=== PATIENT | male | born 1945 | race Caucasian/White ===

== ENCOUNTER 2017-11-08 16:01 | Outpatient (CLI) | payer MEDICARE ==
--- NOTE | 2017-11-08 18:16 | RAD ---
THREE VIEWS LEFT FOOT: Comparison: None. History: Left foot pain and swelling for three years. FINDINGS: Three views of the left foot shows no evidence of acute fracture or dislocation. Distal soft tissue s welling is seen. There appear to be multiple hammertoe deformities. There are degenerative changes in the midfoot. IMPRESSION: 1. Soft tissue swelling with underlying acute osseous abnormality. 2. Degenerative changes of the toes and midfoot. POS: [facility]
--- NOTE | 2017-11-08 18:22 | RAD ---
THREE VIEWS OF THE RIGHT FOOT: 11/08/17 INDICATION: Right foot pain and swelling for three years. COMPARISON: None. FINDINGS: There is chondrocalcinosis involving the great toe MTP joint. There is moderate to severe tarsometata rsal joint osteoarthrosis. No acute fracture or subluxation is evident. No abnormal malalignment is s een at the TMT joint. There is pes planus deformity of the foot. There is soft tissue swelling of th e right forefoot and midfoot. 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 IMPRESSION: 1. No definite acute osseous abnormality. 2. Osteoarthrosis of the midfoot. 3. Pes planus. POS: [facility]
== END 2017-11-08 16:02 | disposition home or self-care (01) ==
LOC: SCSRAD 16:01
PROVIDERS: ATTEND Family Medicine
DX: M79.671 Pain in right foot (principal); M79.672 Pain in left foot; M19.071 Primary osteoarthritis, right ankle and foot; M21.41 Flat foot [pes planus] (acquired), right foot; M19.072 Primary osteoarthritis, left ankle and foot

== ENCOUNTER 2018-08-25 04:07 | Inpatient (IN) | payer MEDICARE ==
[2018-08-25] MEDS ORDERED: Ketorolac Tromethamine 30 MG/ML VIAL ONE (04:51)
[2018-08-25] MEDS ORDERED: Morphine 4 MG/ML VIAL ONE ×2 (04:51→07:47)
[2018-08-25] MEDS ORDERED: Diazepam 5 MG TAB ONE ×2 (04:51→05:52)
[2018-08-25 05:22] LABS: #Basophils 0.1 thou/uL (0.0-0.2); #Eosinphils 0.1 thou/uL (0.0-0.7); #Lymphocytes 1.6 thou/uL (1.20-3.40); #Monocytes 0.6 thou/uL (0.11-0.59); #Neutrophils 3.2 thou/uL (1.40-6.50); %Basophils 1.2 % (0.0-1.0); %Eosinophils 2.5 % (0.0-10.0); %Lymphocytes 28.3 % (21.0-51.0); Hemoglobin 15.3 g/dL (14.0-18.0); Mean Corpuscular HGB CONC 33.5 g/dL (32.0-36.0); Mean Corpuscular Hemoglobin 31.3 pg (27.0-31.0); Mean Corpuscular Volume 93.4 fL (78.0-98.0); Platelet Count 143 thou/uL (130-400); Red Blood Cell (RBC) Count 4.91 mill/uL (4.70-6.10); White Blood Cell (WBC) Count 5.7 thou/uL (4.8-10.8)
[2018-08-25 05:43] LABS: ALT (SGPT) 15 U/L (8-55); AST (SGOT) 43 U/L (5-34); Albumin 4.1 g/dL (3.4-4.8); Alkaline Phosphatase 65 U/L (40-150); Anion Gap 14 mmol/L (10-20); BUN (Urea Nitrogen) 12 mg/dL (8.4-25.7); Bilirubin, Total 1.1 mg/dL (0.2-1.2); Calc. Creatinine Clearance 0 mL/min (70-130); Calcium 10.1 mg/dL (7.8-10.44); Carbon Dioxide 29 mmol/L (23-31); Chloride 99 mmol/L (98-107); Estimated GFR-MDRD 77; Globulin 2.5 g/dL (2.4-3.5); Glucose 121 mg/dL (83-110); Lipase 16 U/L (8-78); Potassium 3.4 mmol/L (3.5-5.1); Protein, Total 6.6 g/dL (5.8-8.1); Sodium 139 mmol/L (136-145)
--- NOTE | 2018-08-25 07:28 | CT ---
THORACIC SPINE CT NONCONTRAST: Date: 08/25/18 INDICATION: Fall, injury with back pain. FINDINGS: Extensive degenerative change and osseous demineralization present throughout the imaged osseous stru ctures. There is no definitive evidence for acute compression fracture of significance, or subluxatio n. No retropulsion of bone into the vertebral canal or acute facet malalignment visualized. IMPRESSION: Extensive osseous degenerative change and demineralization without acute compression fracture or subl uxation identified. POS: [facility]
--- NOTE | 2018-08-25 07:37 | CT ---
LUMBAR SPINE CT NONCONTRAST: INDICATION: Fall with injury and pain. FINDINGS: There is extensive degenerative change and osseous demineralization. Mild superior end plate deformi ty of the L3 segment favors a Schmorl's node with adjacent gas-vacuum phenomenon indicative of degene rative disk disease. There is also gas-vacuum phenomenon seen at the L4-5 disk space and within righ t L5-S1 facet joint. There is no definitive evidence of acute compression fracture or subluxation. Incidental note of atherosclerosis. No retroperitoneal hematoma. IMPRESSION: Multilevel degenerative change and osseous demineralization. No definite acute compression fracture or subluxation of significance is seen. POS: [facility]
--- NOTE | 2018-08-25 08:00 | RAD ---
ONE VIEW CHEST: HISTORY: Pain. FINDINGS: Atherosclerosis of the aorta. Normal cardiac silhouette. The pulmonary vessels and hilum are normal . No masses or consolidation. No pneumothorax or osseous abnormalities. IMPRESSION: No acute cardiopulmonary process. POS: [facility]
[2018-08-25 08:33] LABS: Troponin I Less than 0.010 ng/mL (< 0.028)
[2018-08-25] MEDS ORDERED: Cyclobenzaprine 10 MG TAB PO PRN (10:56)
[2018-08-25] MEDS ORDERED: Naproxen 500 MG TAB PO PRN (10:59)
[2018-08-25 11:37] LABS: Troponin I Less than 0.010 ng/mL (< 0.028)
[2018-08-25 11:56] VITALS: BMI 35.1
--- NOTE | 2018-08-25 12:23 | HP ---
REASON FOR ADMISSION: Severe back pain and atypical chest pain. HISTORY OF PRESENT ILLNESS AND REVIEW OF SYSTEMS: Mr. Poon is a very pleasant 73-year-old man with a background history of type 2 diabetes, hyperlipidemia, hypertension, osteoarthritis, and chronic back pain. He presents with severe pain in the sacrum and perineum following an injury he had 3 days ago. The patient states he was walking and came to a sudden incline causing him to stumble down a 45 degree angle, however, able to stay standing and caught his balance with both of his canes. Once reaching a standing position, he did make a full impact on his right heel and immediately felt a severe sharp pain shooting from the perineum straight up his lower back. The patient states since then he has been able to mobilize without any significant pain as long as he walked by shuffling his feet. He denies any further injury since then. He states he has managed to carry on with his normal activities despite the reduced range of motion. He reports having to get his to help him lift his legs when getting into bed and noted this was particularly more painful last night. The patient states at 2:00 a.m. this morning, he got up to use the toilet and was able to shuffle to the bathroom on his own. He states he then was unable to stand back up from a sitting position and began to experience severe pain in his sacrum/perineal region prompting him to seek medical attention. The patient states he has not noted any saddle numbness or paresthesias. He suffers from chronic neuropathy associated with previous back surgeries and diabetic neuropathy. He has not noted any weakness in the lower legs. The patient states his pain was severe, 10/10, and has been given 4 mg of morphine in the ED as well as Valium 5 mg and Toradol 15 mg IV. He states his pain has lessened to about a 6/ 10 in severity, however, that is without attempting any movement. The patient states if he does try to move particularly his lower legs, he experiences shooting pain again through the perineum shoot up the lower back. Of note, the patient has been experiencing chest pain intermittently for the last 2 weeks, which he rates a 4/10 in severity, located in the substernal region. He reports calling Dr. 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 He states he has had issues with chest pain in the past that were associated with either chronic shoulder issues or his hiatal hernia. The chest pain, however has been atypical with no particular thing that makes it better or worse. He has noted it comes on at times when he is resting and other times when he is exerting himself. He reports undergoing a catheterization in the past and being told that he had a blocked artery at approximately 10% to 20%. At the present time, the patient denies any current chest pain. He did have a troponin ordered in the ED which was negative. PAST MEDICAL HISTORY: 1. Type 2 diabetes. 2. Hyperlipidemia. 3. Hypertension. 4. Diabetic neuropathy. 5. Chronic back pain. 6. Bilateral knee replacements. 7. Left hip surgery as a teen (ball and socket). 8. Diaphragmatic hernia. 9. GERD. ALLERGIES: NO KNOWN DRUG ALLERGIES. CURRENT MEDICATIONS: 1. Fexofenadine 180 mg p.o. daily. 2. Aspirin 81 mg p.o. daily. 3. Prilosec 20 mg p.o. daily. 4. Triamterene/hydrochlorothiazide 37.5/25 mg p.o. daily. 5. Gabapentin 300 mg twice daily. 6. Plavix 75 mg p.o. daily. 7. Glipizide 5 mg p.o. daily. 8. Donepezil 5 mg p.o. at bedtime. 9. Vitamin B12 5000/100 mcg sublingual Tuesday, Tuesday, Fridays. 10. Tramadol 50 mg p.o. daily. 11. Zocor 40 mg p.o. daily. 12. Diclofenac 75 mg p.o. every other day. PHYSICAL EXAMINATION: GENERAL: The patient appears obese and well developed. He is found lying flat on his back and appears to be in moderate discomfort. VITAL SIGNS: Temperature , pulse 62, blood pressure 159/68, respirations 18, O2 saturation 97% on room air. HEENT: Normocephalic and atraumatic. Pupils are equal, round, and reactive to light. Sclerae are without icterus. Oropharynx is clear. NECK: Supple without lymphadenopathy. Full range of motion. No cervical spine tenderness. LUNGS: Clear to auscultation bilaterally. CARDIAC: Regular rate and rhythm. ABDOMEN: Obese, nontender. Normoactive bowel sounds present. No guarding or rigidity. EXTREMITIES: No edema. Limited range of motion due to subsequent lower back pain. Sensation intact and reflexes intact. NEUROLOGIC: Alert and oriented x3. SKIN: Without rash or jaundice. ECG: Done in the ED. Sinus Humberto with a heart rate of 53. Nonspecific abnormal T-waves, they appear slightly flattened. Left axis noted. Left ventricular hypertrophy with QRS widening. LABORATORY STUDIES: White blood count 5.7, hemoglobin 15.3, hematocrit 45.8, platelets 143. Sodium 139, potassium 3.4, BUN 12, creatinine 0.95, GFR 77, glucose 121, calcium 10.1, total bilirubin 1.1, AST 43, alkaline phosphatase 65. Troponin negative. Lipase 16. IMAGING DATA: 1. Chest x-ray, 08/25/2018. No acute cardiopulmonary process. Normal cardiac silhouette. Atherosclerosis of the aorta noted. Pulmonary vessels and hilum are normal with no masses or consolidation. 2. CT lumbar spine. Extensive degenerative changes with osseous demineralization. No definite acute compression fracture or subluxation seen. 3. CT T-spine. Again, extensive osseous degenerative change with demineralization and no acute compression fracture or subluxation identified. IMPRESSION AND PLAN: Mr. Poon is being admitted to the observation unit for management of the following conditions. 1. Severe pain. The patient with recent injury. He reports the pain is most severe in the perineum and shooting up his tailbone and lower back. Awaiting sacrum and coccyx x-ray, which has just been requested. We will continue to manage pain with antiinflammatories and Flexeril. We will hold off on any PT, OT eval until x- ray has been done. No apparent fractures or malalignment noted on CT images of the thoracic and lumbar spine. No focal neurology on exam. Morphine 2 mg Q4 hr for pain. MRI Lumbar spine. 2. Atypical chest pain. The patient has had chest pain on and off for the last 2 weeks at rest and at times with exertion. Known history of coronary artery disease. He is a patient of Dr. Cortez. Initial troponin is negative. Awaiting serial troponins. We have ordered a BNP and echo. We will discuss need for inpatient stress test/cardiac evaluation versus outpatient, to be discussed with Dr. Wills. 3. Gastrointestinal prophylaxis. 4. Venous thromboembolism prophylaxis. 5. The patient is full code status and his surrogate decision maker is his , Tanya Poon. 6. Hypertension. Resume home medications and continue to monitor blood pressure. 7. Type 2 diabetes mellitus. Resume home medications and continue to monitor glucose. The patient's case discussed with Dr. Wills who agrees with plan as above. Job ID: [id number] [id number]
[2018-08-25] MEDS ORDERED: Dextrose 50% Abboject 50 ML SYRINGE SLOW IVP PRN (14:30)
[2018-08-25] MEDS ORDERED: HumaLOG 300 UNITS/3 ML VIAL SC PRN ×2 (14:30)
[2018-08-25] MEDS ORDERED: Dextrose 5% in Water 1,000 ML IV PRN (14:30)
[2018-08-25] MEDS: Cyclobenzaprine 10 MG TAB PO SCH ×2 (15:37→21:29)
[2018-08-25] MEDS: Morphine 2 MG/ML SYRINGE SLOW IVP PRN ×2 (17:23→21:30)
--- NOTE | 2018-08-25 18:15 | CON ---
DATE OF CONSULTATION: 08/25/2018 REASON FOR CONSULTATION: Chest pain and palpitations. HISTORY OF PRESENT ILLNESS: Jonny Poon is a pleasant 73-year-old gentleman with history of diabetes, hypertension, hypercholesterolemia who recently fell, also been having some chest symptoms as will be outlined below. The patient states about the last two weeks, he has had chest discomfort, which he mostly describes as a "fluttering," it is middle of his chest and he feels somewhat short of breath with this. The patient says it lasts usually minutes at a time. The patient also recently had a fall as outlined in the chart and there may have been some sacral injury. He tried to go to the bathroom very early this morning and could not stand back up after going to the bathroom. Therefore, an ambulance was called and he was brought here. He has does not have any chest pain, pressure, heaviness or squeezing typical of angina. He is moderately active, said he was able to ambulate fairly well up until this recent fall. PAST MEDICAL HISTORY: 1. Hypertension. 2. Diabetes. 3. Obesity. 4. Hypercholesterolemia. 5. Venous insufficiency. Previous ablations. MEDICATIONS: At home: 1. Aspirin. 2. Atorvastatin. 3. Clopidogrel (had a stroke many years ago, he has been on aspirin and Plavix since then). 4. Cyclobenzaprine. 5. Gabapentin. 6. Glipizide. 7. Pantoprazole. 8. Triamterene. 9. Hydrochlorothiazide. 10. Insulin. SOCIAL HISTORY: He does not use alcohol or tobacco. FAMILY HISTORY: Positive for heart disease. His father had a heart attack at a young age and from a heart attack at the young age. REVIEW OF SYSTEMS: CONSTITUTIONAL: No significant weight gain or loss. VISION: No changes. HEARING: No changes. PULMONARY: No cough or wheezing. GASTROINTESTINAL: No nausea, vomiting, diarrhea. CARDIAC: As outlined above. GASTROINTESTINAL: No nausea, vomiting, or diarrhea. OBJECTIVE: VITAL SIGNS: On examination, it is a 6 feet 4-1/2 inches tall, 290 pounds gentleman in no distress. HEENT: Eyes, sclerae nonicteric. Mouth, mucous membranes moist. NECK: Supple. No lymphadenopathy. LUNGS: Clear. No wheezing, rales, or rhonchi. CARDIAC: Normal S1, normal S2. I do not hear murmur, rub or gallop. ABDOMEN: Soft and nontender. EXTREMITIES: No clubbing or cyanosis. There is no significant edema. There are good peripheral pulses. Very strong dorsalis pedis pulses. DIAGNOSTIC DATA: EKG; sinus rhythm, mild nonspecific ST changes and incomplete right bundle branch block. On the monitor, he has had some sinus arrhythmia, premature atrial contractions, and very short episodes of SVT. ASSESSMENT: 1. Palpitations. Strongly suspect he may be having paroxysmal atrial fibrillation. 2. Diabetes. 3. Hypertension. 4. Obesity. 5. Recent fall. PLAN: 1. He is scheduled for echocardiogram and stress testing. 2. If he does have atrial fibrillation, would recommend stopping the Plavix, adding Eliquis 5 mg twice a day. 3. Stress testing and echocardiogram to be done. He has some extremely strong risk factors for coronary artery disease. He did have a negative PET scan in our office done by Dr. Wilson in 2017. Job ID: [id number]
[2018-08-25] MEDS: Donepezil HCl 10 MG TAB PO SCH (21:28)
[2018-08-25] MEDS: Gabapentin 300 MG CAP PO SCH (21:28)
[2018-08-25] MEDS: Atorvastatin Calcium 20 MG TAB PO SCH (21:29)
--- NOTE | 2018-08-25 21:45 | RAD ---
XR SACRUM AND COCCYX STANDARD 08/25/18 HISTORY: Pain. COMPARISON: None. FINDINGS: Incomplete evaluation of two screws through the left femoral neck. Loss of normal sphericity of the r ight femoral head and neck junction. Moderate narrowing of the left hip and mild narrowing of the rig ht hip. There is no acute fracture or malalignment. The obturator rings are intact. Sacral struts are intact. IMPRESSION: No acute abnormality. Chronic changes. POS: [facility]
[2018-08-26] MEDS: Nitroglycerin 0.4 MG TAB (25 Tab Bottle) SL PRN ×3 (01:33→01:54)
[2018-08-26 02:03] LABS: #Basophils 0.1 thou/uL (0.0-0.2); #Eosinphils 0.2 thou/uL (0.0-0.7); #Lymphocytes 2.1 thou/uL (1.20-3.40); #Monocytes 0.9 thou/uL (0.11-0.59); #Neutrophils 4.3 thou/uL (1.40-6.50); %Basophils 0.9 % (0.0-1.0); %Eosinophils 2.8 % (0.0-10.0); %Lymphocytes 27.3 % (21.0-51.0); %Monocytes 12.4 % (0.0-10.0); %Neutrophils 56.7 % (42.0-75.0); Hemoglobin 15.1 g/dL (14.0-18.0); Mean Corpuscular Hemoglobin 31.2 pg (27.0-31.0); Mean Corpuscular Volume 94.3 fL (78.0-98.0); Mean Platelet Volume 9.1 fL (7.4-10.4); Platelet Count 144 thou/uL (130-400); RBC Distribution Width 12.1 % (11.5-14.5); Red Blood Cell (RBC) Count 4.83 mill/uL (4.70-6.10); White Blood Cell (WBC) Count 7.6 thou/uL (4.8-10.8)
[2018-08-26 02:33] LABS: Anion Gap 14 mmol/L (10-20); BUN (Urea Nitrogen) 16 mg/dL (8.4-25.7); Calc. Creatinine Clearance 135 mL/min (70-130); Calcium 9.7 mg/dL (7.8-10.44); Carbon Dioxide 30 mmol/L (23-31); Cardiac Risk 2.8 (Less than 4.5); Chloride 102 mmol/L (98-107); Cholesterol 147 mg/dl (< 200 Desired); Estimated GFR-MDRD 82; Glucose 107 mg/dL (83-110); HDL Cholesterol 53 mg/dL (>60 Neg Risk); LDL Cholesterol, Calculated 67 mg/dL; Potassium 3.1 mmol/L (3.5-5.1); Sodium 143 mmol/L (136-145); Triglycerides 135 mg/dL (Less than 150)
[2018-08-26] MEDS ORDERED: Ketorolac Tromethamine 15 MG/ML VIAL IVP PRN (02:35)
[2018-08-26] MEDS: Ketorolac Tromethamine 30 MG/ML VIAL IVP PRN ×3 (03:07→21:25)
[2018-08-26] MEDS: Morphine 2 MG/ML SYRINGE SLOW IVP PRN ×3 (06:04→21:25)
[2018-08-26] MEDS: Triamterene/Hydrochlorothiazide 37.5 mg/25 mg Tablet PO SCH (07:43)
[2018-08-26] MEDS: Cyclobenzaprine 10 MG TAB PO SCH ×3 (07:43→21:24)
[2018-08-26] MEDS: Loratadine 10 MG TAB PO SCH (07:43)
[2018-08-26] MEDS: Aspirin 325 MG TAB PO SCH (07:43)
[2018-08-26] MEDS: Clopidogrel Bisulfate 75 MG TAB PO SCH (07:43)
[2018-08-26] MEDS: Gabapentin 300 MG CAP PO SCH ×2 (07:44→21:24)
[2018-08-26] MEDS ORDERED: Potassium Chloride 20 MEQ TAB PO SCH (12:00)
--- NOTE | 2018-08-26 16:43 | MRI ---
MRI OF THE LUMBAR SPINE WITHOUT CONTRAST: 08/26/18 HISTORY: Low back pain, severe right hip pain x3 days. COMPARISON: None. CORRELATION: CT lumbar spine 08/25/18. FINDINGS: Appropriate T1 marrow signal intensity of the lumbar vertebrae. Lumbar spine vertebral body height is maintained. There is no fracture. There is no significant STIR hyperintensity to suggest vertebral b htang edema or ligamentous injury. There is fluid in the T11-T12 disc space as well as the posterior aspect of the L1-L2 disc space. Thr ough there is a presence of a small amount of edema, end plates are preserved. The presence of edema is presumed to be due to degenerative change. Additionally, there is edema along the right aspect of the L1-L2 disc space which is also presumed to be on the bases of degenerative change. Symmetric signal intensity of the psoas muscles. Appropriate signal intensity of the visualized solid organs. Conus medullaris terminates at the upper aspect of L1. T12-L1: Desiccation without significant loss of disc space height. No significant central canal steno sis or foraminal narrowing. L1-L2: No significant central canal stenosis. Neural foramina are patent. L2-L3: Generalized disc bulge. Minimal ligamentum flavum thickening and facet hypertrophy. Mild centr al canal stenosis. Mild narrowing of the left subarticular zone without significant mass effect or ob scuration traversing the left L3 nerve root. Mild right foraminal narrowing. Moderate left foraminal narrowing. L3-L4: Desiccation with mild loss of disc space height. Generalized disc bulge with a central/left anglin barticular protrusion. Disc material abuts but does not obscure the traversing left L4 nerve root. Ov erall, there is mild central canal stenosis. Right neural foramen is mildly narrowed. Mild left mulugeta inal narrowing. L4-L5: Moderate to severe left disc space height. Generalized disc bulge, ligamentum flavum and facet hypertrophy results in moderate central canal stenosis. Narrowing in both subarticular zones, right greater than left. Obscuration of the traversing right L5 nerve root. Partial obscuration traversing the left L5 nerve root. There is bilateral facet hypertrophy. Moderate to severe right and mild to mo derate left foraminal narrowing. L5-S1: No significant central canal stenosis. There is bilateral facet hypertrophy with fluid in bot h facet joints. There is moderate right foraminal narrowing. Left neural foramen is patent. IMPRESSION: Degenerative changes in the lumbar spine as detailed above. POS: [facility]
--- NOTE | 2018-08-26 18:40 | PDOC.CTH ---
Cardiology Progress Note - Subjective Doing well. No new issues. - Objective Vital Signs Temp Pulse Resp BP Pulse Ox 08/26/18 15:19 98.3 F 51 L 20 150/67 H 99 08/26/18 12:04 97.7 F 57 L 18 155/66 H 99 08/26/18 07:40 97.8 F 56 L 18 148/67 H 100 Weight 292 lb 8 oz 08/25/18 08/26/18 08/27/18 06:59 06:59 06:59 Intake Total 740 960 Output Total 700 550 Balance 40 410 - Physical Examination General/Neuro: alert & oriented x3, NAD Neck: no JVD present Lungs: CTA, unlabored respirations Heart: RRR Abdomen: NT/ND Extremities: + edema B (1+) - Telemetry Telemetry Rhythm: NSR - Labs Result Diagrams: 08/26/18 01:49 08/26/18 01:49 Troponin/CKMB Troponin I 0.012 ng/mL (< 0.028) 08/26/18 01:49 - Assessment/Plan 1. Chest pain 2. Palpitations. PLAN: - Echo showed normal LV function - Stress MPI pending. - Preethi Gomez
[2018-08-26] MEDS: Atorvastatin Calcium 20 MG TAB PO SCH (21:24)
[2018-08-26] MEDS: Donepezil HCl 10 MG TAB PO SCH (21:24)
[2018-08-27] MEDS: Morphine 2 MG/ML SYRINGE SLOW IVP PRN ×2 (01:44→12:51)
[2018-08-27] MEDS ORDERED: Lidocaine 5% Patch TD SCH (01:45)
[2018-08-27 06:47] LABS: #Eosinphils 0.3 thou/uL (0.0-0.7); #Lymphocytes 2.1 thou/uL (1.20-3.40); #Monocytes 0.9 thou/uL (0.11-0.59); #Neutrophils 3.1 thou/uL (1.40-6.50); %Basophils 0.5 % (0.0-1.0); %Eosinophils 4.8 % (0.0-10.0); %Lymphocytes 32.8 % (21.0-51.0); %Monocytes 13.5 % (0.0-10.0); %Neutrophils 48.4 % (42.0-75.0); Hemoglobin 14.2 g/dL (14.0-18.0); Mean Corpuscular HGB CONC 32.3 g/dL (32.0-36.0); Mean Corpuscular Hemoglobin 30.6 pg (27.0-31.0); Mean Corpuscular Volume 94.9 fL (78.0-98.0); Mean Platelet Volume 9.3 fL (7.4-10.4); Platelet Count 132 thou/uL (130-400); RBC Distribution Width 12.1 % (11.5-14.5); Red Blood Cell (RBC) Count 4.62 mill/uL (4.70-6.10); White Blood Cell (WBC) Count 6.5 thou/uL (4.8-10.8)
[2018-08-27] MEDS: Ketorolac Tromethamine 30 MG/ML VIAL IVP PRN ×2 (07:08→20:51)
[2018-08-27 07:26] LABS: Anion Gap 12 mmol/L (10-20); BUN (Urea Nitrogen) 16 mg/dL (8.4-25.7); Calc. Creatinine Clearance 148 mL/min (70-130); Calcium 9.4 mg/dL (7.8-10.44); Carbon Dioxide 30 mmol/L (23-31); Chloride 103 mmol/L (98-107); Estimated GFR-MDRD Greater than 90; Glucose 73 mg/dL (83-110); Potassium 3.4 mmol/L (3.5-5.1); Sodium 142 mmol/L (136-145)
[2018-08-27] MEDS ORDERED: Lidocaine 5% Patch TD PRN (09:00)
[2018-08-27] MEDS: Aspirin 325 MG TAB PO SCH (09:11)
[2018-08-27] MEDS: Loratadine 10 MG TAB PO SCH (09:11)
[2018-08-27] MEDS: Cyclobenzaprine 10 MG TAB PO SCH ×3 (09:11→20:49)
[2018-08-27] MEDS: Gabapentin 300 MG CAP PO SCH ×2 (09:12→21:10)
[2018-08-27] MEDS: Clopidogrel Bisulfate 75 MG TAB PO SCH (09:12)
[2018-08-27] MEDS: Triamterene/Hydrochlorothiazide 37.5 mg/25 mg Tablet PO SCH (09:12)
[2018-08-27] MEDS ORDERED: Potassium Chloride 20 MEQ TAB PO SCH ×2 (11:45→17:45)
--- NOTE | 2018-08-27 13:09 | PDOC.PN ---
- Subjective Encounter Start Date: 08/26/18 Encounter Start Time: 14:17 Subjective: Patient states feeling better but still unable to move due to pain. -: Earlier today when he went down for the MRI, he was able to sit with help -: and then stand for a brief moment. Now with localized right hip pain. Otherwise without any complaints. Denies any chest pain or sob. No headaches or dizziness. No abdominal pain or cramping. Has not had any fevers, chills or sweats. - Objective Vital Signs & Weight: Vital Signs (12 hours) Temp Pulse Resp BP Pulse Ox 08/27/18 12:11 97.9 F 18 162/68 H 08/27/18 08:19 97.8 F 62 18 153/65 H 98 Weight Weight 292 lb 8 oz I&O: 08/26/18 08/27/18 08/28/18 06:59 06:59 06:59 Intake Total 740 1210 Output Total 700 550 Balance 40 660 Result Diagrams: 08/27/18 06:15 08/27/18 06:15 Additional Labs: Accuchecks 08/27/18 08/27/18 08/26/18 10:50 07:49 20:39 POC Glucose 155 H 77 134 H 08/26/18 17:01 POC Glucose 82 Phys Exam - Physical Examination Constitutional: NAD Patient laying flat in bed HEENT: PERRLA, moist MMs, oral pharynx no lesions Neck: supple, full ROM Respiratory: clear to auscultation bilateral Cardiovascular: RRR Gastrointestinal: soft, non-tender, no distention Musculoskeletal: no edema, pulses present Neurological: non-focal reduced senation in lower limbs, chronic due to neuropathy Psychiatric: normal affect, A&O x 3 Dx/Plan (1) Chest pain Code(s): R07.9 - CHEST PAIN, UNSPECIFIED Status: Acute (2) Severe back pain Code(s): M54.9 - DORSALGIA, UNSPECIFIED Status: Acute (3) HTN (hypertension) Code(s): I10 - ESSENTIAL (PRIMARY) HYPERTENSION Status: Chronic (4) Diabetes mellitus Code(s): E11.9 - TYPE 2 DIABETES MELLITUS WITHOUT COMPLICATIONS Status: Chronic (5) Obesity Code(s): E66.9 - OBESITY, UNSPECIFIED Status: Chronic - Plan cont current plan of care Status post MRI, awaiting results. -: No chest pain at present, Cardiology following. -: Awaiting Echo and Stress test. -: Continue analgesia. * .
[2018-08-27] MEDS ORDERED: Lidocaine Patch Removal 1 EACH TOP SCH (14:00)
--- NOTE | 2018-08-27 15:52 | NM ---
NUCLEAR MEDICINE CARDIAC STRESS WITH EF AND WALL MOTION: HISTORY: Chest pain. COMPARISON: None. TECHNIQUE: The patient was administered 27.20 mCi of Technetium 99m sestamibi for rest imaging and 27 mCi of Shane hnetium 99m sestamibi for stress imaging. Cardiac gating is performed. FINDINGS: There does appear to be a small focus of reversibility involving the mid anterolateral aspect of the septum. There is also reversibility involving the apex. TID is 1.17. End-diastolic volume is 127 mL. End-systolic volume is 47 mL. CARDIAC GATING: Normal motion and thickening. 62% 3jection fraction. IMPRESSION: 1. Small focus of reversibility involving the anterolateral septum and apex. 2. 63% ejection fraction. POS: [facility]
--- NOTE | 2018-08-27 17:36 | PDOC.CTH ---
Cardiology Progress Note - Subjective No new issues. Back pain. - Objective Vital Signs Temp Pulse Resp BP Pulse Ox 08/27/18 16:00 98.6 F 62 18 144/65 H 97 08/27/18 12:11 97.9 F 18 162/68 H 08/27/18 08:19 97.8 F 62 18 153/65 H 98 Weight 292 lb 8 oz 08/26/18 08/27/18 08/28/18 06:59 06:59 06:59 Intake Total 740 1210 Output Total 700 550 Balance 40 660 - Physical Examination General/Neuro: alert & oriented x3, NAD Neck: no JVD present Lungs: CTA, unlabored respirations Heart: RRR Abdomen: NT/ND Extremities: other: (no edema.) - Telemetry Telemetry Rhythm: NSR - Labs Result Diagrams: 08/27/18 06:15 08/27/18 06:15 Troponin/CKMB Troponin I Less than 0.010 ng/mL (< 0.028) 08/27/18 16:06 - Assessment/Plan 1. Chest pain 2. Palpitations. PLAN: - Echo showed normal LV function - Mildly abnormal MPI. Will talk to Dr. Cortez as this is a low risk finding and reasonable to do conservative therapy versus [facility]. - Preethi Gomez
--- NOTE | 2018-08-27 18:17 | PDOC.PN ---
- Subjective Encounter Start Date: 08/27/18 Encounter Start Time: 16:13 Subjective: Complaining of chest pain that has been steadily rising since admission. -: Very concerned due to increased pain during stress test. -: Denies any pain with exertion i.e. getting up to the toilet. States he will refuse any PT/OT evaluation until he has been cleared by Cardiology. Denies any cough or hemoptysis. No pleuritic CP. Describes the pain as a constant pressure across his chest. It has been ongoing for quite some time but states when he has gone down for investigations the bumps and moving about have caused his pain to rise at times. Denies any back pain at present and states he is able to sit up and stand as long as he keeps himself in alignment. No fevers, chills or sweats. Tolerating food without any n/v. No abdominal pain/cramping. - Objective Vital Signs & Weight: Vital Signs (12 hours) Temp Pulse Resp BP Pulse Ox 08/27/18 16:00 98.6 F 62 18 144/65 H 97 08/27/18 12:11 97.9 F 18 162/68 H 08/27/18 08:19 97.8 F 62 18 153/65 H 98 Weight Weight 292 lb 8 oz I&O: 08/26/18 08/27/18 08/28/18 06:59 06:59 06:59 Intake Total 740 1210 Output Total 700 550 Balance 40 660 Result Diagrams: 08/27/18 06:15 08/27/18 06:15 Additional Labs: Accuchecks 08/27/18 08/27/18 08/27/18 16:45 10:50 07:49 POC Glucose 105 155 H 77 08/26/18 20:39 POC Glucose 134 H Phys Exam - Physical Examination Constitutional: NAD Patient very emotional. HEENT: PERRLA Neck: full ROM Respiratory: clear to auscultation bilateral Cardiovascular: RRR Gastrointestinal: soft, non-tender, no distention, positive bowel sounds Musculoskeletal: no edema, pulses present unchanged, diabetic neuropathy Psychiatric: normal affect, A&O x 3 Skin: no rash Dx/Plan (1) Chest pain Code(s): R07.9 - CHEST PAIN, UNSPECIFIED Status: Acute (2) Severe back pain Code(s): M54.9 - DORSALGIA, UNSPECIFIED Status: Acute (3) HTN (hypertension) Code(s): I10 - ESSENTIAL (PRIMARY) HYPERTENSION Status: Chronic (4) Diabetes mellitus Code(s): E11.9 - TYPE 2 DIABETES MELLITUS WITHOUT COMPLICATIONS Status: Chronic (5) Obesity Code(s): E66.9 - OBESITY, UNSPECIFIED Status: Chronic - Plan cont current plan of care S/p MRI, no acute abnormalities. For PT/OT eval, on hold. -: Repeat Trop and BNP. 12 lead ECG. -: Stress test: small focus of reversibility involving anterolat septum & apex -: Patient likely to undergo cath tomorrow morning. -: Continue to monitor. * .
[2018-08-27] MEDS ORDERED: Communication Order-Pharmacy FS SCH (20:00)
[2018-08-27] MEDS: Atorvastatin Calcium 20 MG TAB PO SCH (20:50)
[2018-08-27] MEDS: Donepezil HCl 10 MG TAB PO SCH (20:50)
[2018-08-27] MEDS ORDERED: Lidocaine Patch Removal 1 EACH TOP PRN (21:00)
[2018-08-28] MEDS ORDERED: Sodium Chloride 0.9% 1,000 ML IV SCH ×2 (00:01→08:38)
[2018-08-28] MEDS: Morphine 2 MG/ML SYRINGE SLOW IVP PRN ×4 (00:56→21:34)
[2018-08-28] MEDS: Triamterene/Hydrochlorothiazide 37.5 mg/25 mg Tablet PO SCH (06:28)
[2018-08-28] MEDS: Aspirin 325 MG TAB PO SCH (06:28)
[2018-08-28] MEDS: Loratadine 10 MG TAB PO SCH (06:28)
[2018-08-28] MEDS: Cyclobenzaprine 10 MG TAB PO SCH ×3 (06:29→21:18)
[2018-08-28] MEDS: Cyanocobalamin (Vitamin B-12) 1,000 MCG TAB PO SCH (06:29)
[2018-08-28] MEDS: Gabapentin 300 MG CAP PO SCH ×2 (06:29→21:18)
[2018-08-28] MEDS: Clopidogrel Bisulfate 75 MG TAB PO SCH (06:29)
[2018-08-28] MEDS: Ketorolac Tromethamine 30 MG/ML VIAL IVP PRN (08:27)
--- NOTE | 2018-08-28 09:04 | PRG ---
DATE OF SERVICE: 08/28/2018 SUBJECTIVE: Mr. Poon is not having chest pain this morning, feels well. Blood pressure 150/70, pulse 55. I reviewed the situation with the patient. He has been having intermittent chest pressure. He did have abnormal stress test with evidence of anterior ischemia. Ejection fraction 62%. There is a small area of reversibility anterolateral septum and apex. ASSESSMENT: 1. Recurrent chest pain. 2. Palpitations with some sinus bradycardia. Symptoms suggested atrial fibrillation, but we have not documented any. 3. Diabetes. 4. Obesity. PLAN: Proceed to cardiac catheterization. Discussed risks of stroke, heart attack, iodine allergy, loss of blood supply to the leg or kidney, stent thrombosis, and stent restenosis. He understands and wished to proceed. Job ID: [id number]
[2018-08-28] MEDS ORDERED: Midazolam HCl 2 mg/2 ml Vial ONE (09:50)
[2018-08-28] MEDS ORDERED: Fentanyl 100 MCG/2 ML VIAL ONE ×2 (09:50→10:35)
--- NOTE | 2018-08-28 10:13 | PDOC.PN ---
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 -: 1600- patient back from cath and from U/S - examined -: Patient with sharp pain in lower spine with certain movement - Objective Vital Signs & Weight: Vital Signs (12 hours) Temp Pulse Resp BP Pulse Ox 08/28/18 04:15 98.1 F 55 L 18 153/70 H 96 Weight Weight 132.676 kg I&O: 08/27/18 08/28/18 08/29/18 06:59 06:59 06:59 Intake Total 1210 2580 Output Total 550 1080 Balance 660 1500 Result Diagrams: 08/28/18 11:15 08/28/18 11:15 Additional Labs: Accuchecks 08/27/18 08/27/18 08/27/18 21:08 16:45 10:50 POC Glucose 87 105 155 H 08/27/18 07:49 POC Glucose 77 Phys Exam - Physical Examination HEENT: PERRLA, moist MMs Neck: no nodes, no JVD Respiratory: clear to auscultation bilateral Cardiovascular: RRR, no significant murmur Gastrointestinal: soft, non-tender Musculoskeletal: no edema Neurological: non-focal decreased sensation below both knees- chronic Psychiatric: normal affect, A&O x 3 Skin: no rash, normal turgor Dx/Plan (1) Chest pain Code(s): R07.9 - CHEST PAIN, UNSPECIFIED Status: Acute (2) Severe back pain Code(s): M54.9 - DORSALGIA, UNSPECIFIED Status: Acute Comment: Was able to get up from the bed and walk around w/ assistance, as long as he was able to move "his way". (3) Diabetes mellitus Code(s): E11.9 - TYPE 2 DIABETES MELLITUS WITHOUT COMPLICATIONS Status: Chronic (4) HTN (hypertension) Code(s): I10 - ESSENTIAL (PRIMARY) HYPERTENSION Status: Chronic (5) Obesity Code(s): E66.9 - OBESITY, UNSPECIFIED Status: Chronic - Plan cont current plan of care Cardiac cath today, will follow recommendations from Cardiology -: Should have PT/OT evaluation prior to dc -: Will monitor VS, repeat labs in am * . Review of Systems - Review of Systems Musculoskeletal: Back Pain, Leg Pain (right hip pain with certain movements) - Medications/Allergies Allergies/Adverse Reactions: Allergies Allergy/AdvReac Type Severity Reaction Status Date / Time No Known Allergies Allergy Verified 08/25/18 11:40 Medications: Current Medications Acetaminophen/Codeine Phosphate (Tylenol #3) 1 tab PO Q4H PRN PRN Reason: Mild Pain (1-3) Acetaminophen/Codeine Phosphate (Tylenol #3) 2 tab PO Q4H PRN PRN Reason: Moderate Pain (4-6) Aspirin (Aspirin) 325 mg PO DAILY [facility] Last Admin: 08/28/18 06:28 Dose: 325 mg Atorvastatin Calcium (Lipitor) 40 mg PO [facility] Clopidogrel Bisulfate (Plavix) 75 mg PO DAILY [facility] Last Admin: 08/28/18 06:29 Dose: 75 mg Cyanocobalamin (Vitamin B-12) 1,000 mcg PO MoWeFr@0900 [facility] Last Admin: 08/28/18 06:29 Dose: 1,000 mcg Cyclobenzaprine HCl (Flexeril) 10 mg PO TID [facility] Last Admin: 08/28/18 16:07 Dose: 10 mg Dextrose/Water (Dextrose 50%) 25 gm SLOW IVP PRN PRN PRN Reason: Hypoglycemia Donepezil HCl (Aricept) 5 mg PO [facility] Last Admin: 08/27/18 20:50 Dose: 5 mg Gabapentin (Neurontin) 300 mg PO BID [facility] Last Admin: 08/28/18 06:29 Dose: 300 mg Glipizide (Glucotrol Xl) 5 mg PO [facility] Last Admin: 08/28/18 16:07 Dose: 5 mg Glucagon (Glucagon) 1 mg IM PRN PRN PRN Reason: Hypoglycemia Dextrose/Water (D5w) 1,000 mls @ 0 mls/hr IV .Q0M PRN PRN Reason: Hypoglycemia Sodium Chloride (Normal Saline 0.9%) 200 mls @ 0 mls/hr IV ONE PRN PRN Reason: SBP < 90 Stop: 08/28/18 23:00 Sodium Chloride (Normal Saline 0.9%) 1,000 mls @ 100 mls/hr IV .Q10H [facility] Last Admin: 08/28/18 16:17 Dose: 1,000 mls Insulin Human Lispro (Humalog) 0 units SC .MILD SLIDING SCALE PRN PRN Reason: Mild Correctional Scale Insulin Human Lispro (Humalog) 0 units SC .BEDTIME SLIDING SC PRN PRN Reason: Bedtime Correctional Scale Isosorbide Mononitrate (Imdur Er) 30 mg PO DAILY [facility] Isosorbide Mononitrate (Imdur Er) 30 mg PO NOW [facility] Stop: 08/28/18 16:30 Last Admin: 08/28/18 16:07 Dose: 30 mg Ketorolac Tromethamine (Toradol) 15 mg IVP Q6H PRN PRN Reason: Mild Pain (1-3) Stop: 08/31/18 03:04 Last Admin: 08/28/18 08:27 Dose: 15 mg Lidocaine (Lidoderm 5% Patch) 1 patch TD DAILYPRN PRN PRN Reason: Pain Loratadine (Claritin) 10 mg PO DAILY [facility] Last Admin: 08/28/18 06:28 Dose: 10 mg Miscellaneous Medication (Lidocaine Patch Removal) 1 each TOP DAILYPRN PRN PRN Reason: Remove PATCH after 12 HRS Morphine Sulfate (Morphine) 2 mg SLOW IVP Q4H PRN PRN Reason: Moderate to Severe Pain (6-10) Last Admin: 08/28/18 16:08 Dose: 2 mg Nitroglycerin (Nitrostat) 0.4 mg SL Q5MIN PRN PRN Reason: Chest Pain Pantoprazole Sodium (Protonix) 40 mg PO DAILY [facility] Last Admin: 08/28/18 06:29 Dose: 40 mg Polyethylene Glycol (Miralax) 17 gm PO DAILY [facility] Last Admin: 08/28/18 16:08 Dose: 17 gm
[2018-08-28] MEDS ORDERED: Sodium Chloride 0.9% 200 ML IV PRN (10:42)
[2018-08-28] MEDS ORDERED: Acetaminophen/Codeine 30-300mg Tablet PO PRN ×2 (10:42)
[2018-08-28 11:29] LABS: #Basophils 0.1 thou/uL (0.0-0.2); #Eosinphils 0.2 thou/uL (0.0-0.7); #Lymphocytes 1.8 thou/uL (1.20-3.40); #Monocytes 0.6 thou/uL (0.11-0.59); #Neutrophils 2.7 thou/uL (1.40-6.50); %Basophils 1.2 % (0.0-1.0); %Eosinophils 4.5 % (0.0-10.0); %Lymphocytes 33.1 % (21.0-51.0); %Monocytes 10.9 % (0.0-10.0); %Neutrophils 50.4 % (42.0-75.0); Hemoglobin 14.6 g/dL (14.0-18.0); Mean Corpuscular HGB CONC 32.6 g/dL (32.0-36.0); Mean Corpuscular Hemoglobin 30.8 pg (27.0-31.0); Mean Corpuscular Volume 94.6 fL (78.0-98.0); Mean Platelet Volume 9.1 fL (7.4-10.4); Platelet Count 136 thou/uL (130-400); RBC Distribution Width 12.1 % (11.5-14.5); Red Blood Cell (RBC) Count 4.74 mill/uL (4.70-6.10); White Blood Cell (WBC) Count 5.3 thou/uL (4.8-10.8)
[2018-08-28 11:45] LABS: Anion Gap 12 mmol/L (10-20); BUN (Urea Nitrogen) 13 mg/dL (8.4-25.7); Calc. Creatinine Clearance 162 mL/min (70-130); Calcium 9.1 mg/dL (7.8-10.44); Carbon Dioxide 25 mmol/L (23-31); Chloride 105 mmol/L (98-107); Estimated GFR-MDRD Greater than 90; Glucose 69 mg/dL (83-110); Potassium 3.7 mmol/L (3.5-5.1); Sodium 138 mmol/L (136-145)
[2018-08-28] MEDS ORDERED: Sodium Chloride 0.9% 10 ML ONE (12:44)
[2018-08-28] MEDS ORDERED: Iopamidol 370 76% 100 ML VIAL ONE (13:20)
[2018-08-28] MEDS: Polyethylene Glycol 3350 17 GM Packet PO SCH ×2 (14:00→16:08)
[2018-08-28] MEDS: Sodium Chloride 0.9% 1,000 ML IV SCH (16:17)
--- NOTE | 2018-08-28 16:47 | ULT ---
RIGHT UPPER QUADRANT ULTRASOUND: Indication: Chest and abdominal pain. FINDINGS: There are small stones within the gallbladder. Gallbladder wall is mildly thickened but no presence o f pericholecystic edema. No sonographic Mccullough's sign is reported. Common bile duct measures 3 mm. Pa ncreas is obscured. Right kidney is limited in evaluation. The right kidney measures approximately 9. 8 cm with no gross hydronephrosis present. The liver measures 14.7 cm in longitudinal dimension. IMPRESSION: 1. Cholelithiasis with mild wall thickening. No sonographic Mccullough's sign or pericholecystic fluid is definitely seen. Findings are equivocal for acute cholecystitis. If clinically indicated, HIDA scan may be helpful. 2. Limitations of the exam due to overlying bowel gas. POS: [facility]
[2018-08-28] MEDS: Donepezil HCl 10 MG TAB PO SCH (21:18)
[2018-08-28] MEDS: Atorvastatin Calcium 40 MG TAB PO SCH (21:18)
[2018-08-29] MEDS: Sodium Chloride 0.9% 1,000 ML IV SCH ×2 (03:35→20:59)
[2018-08-29] MEDS: Ketorolac Tromethamine 30 MG/ML VIAL IVP PRN ×3 (04:27→20:50)
[2018-08-29 05:13] LABS: #Basophils 0.1 thou/uL (0.0-0.2); #Eosinphils 0.3 thou/uL (0.0-0.7); #Lymphocytes 1.6 thou/uL (1.20-3.40); #Monocytes 0.6 thou/uL (0.11-0.59); %Basophils 0.8 % (0.0-1.0); %Eosinophils 4.4 % (0.0-10.0); %Monocytes 9.4 % (0.0-10.0); %Neutrophils 61.4 % (42.0-75.0); Hemoglobin 14.7 g/dL (14.0-18.0); Mean Corpuscular HGB CONC 32.2 g/dL (32.0-36.0); Mean Corpuscular Hemoglobin 30.7 pg (27.0-31.0); Mean Corpuscular Volume 95.5 fL (78.0-98.0); Mean Platelet Volume 8.9 fL (7.4-10.4); Platelet Count 145 thou/uL (130-400); RBC Distribution Width 12.1 % (11.5-14.5); Red Blood Cell (RBC) Count 4.78 mill/uL (4.70-6.10); White Blood Cell (WBC) Count 6.4 thou/uL (4.8-10.8)
[2018-08-29 05:33] LABS: Anion Gap 11 mmol/L (10-20); BUN (Urea Nitrogen) 13 mg/dL (8.4-25.7); Calc. Creatinine Clearance 146 mL/min (70-130); Calcium 9.5 mg/dL (7.8-10.44); Carbon Dioxide 29 mmol/L (23-31); Chloride 103 mmol/L (98-107); Estimated GFR-MDRD Greater than 90; Glucose 69 mg/dL (83-110); Potassium 3.9 mmol/L (3.5-5.1); Sodium 139 mmol/L (136-145)
--- NOTE | 2018-08-29 08:37 | RAD ---
AP AND FROGLEG VIEWS OF BOTH HIPS AND AP VIEW PELVIS: HISTORY: Pelvic pain. TECHNIQUE: AP view of the pelvis and AP and frogleg views of both hips are obtained. FINDINGS: Three transosseous screws are seen in the proximal left femur. No evidence of acute fracture is seen . No significant evidence of acute fracture is seen. Moderate left hip joint degenerative changes a nd osteophytes are seen. Lower lumbar degenerative changes and changes of spondylosis are noted. IMPRESSION: No evidence of acute pelvic or hip fracture is seen. POS: [facility]
[2018-08-29] MEDS: Cyclobenzaprine 10 MG TAB PO SCH ×3 (10:05→20:45)
[2018-08-29] MEDS: Gabapentin 300 MG CAP PO SCH ×2 (10:05→20:47)
[2018-08-29] MEDS: Clopidogrel Bisulfate 75 MG TAB PO SCH (10:05)
[2018-08-29] MEDS: Triamterene/Hydrochlorothiazide 37.5 mg/25 mg Tablet PO SCH (10:05)
[2018-08-29] MEDS: Aspirin 325 MG TAB PO SCH (10:05)
[2018-08-29] MEDS: Nitroglycerin 0.4 MG TAB (25 Tab Bottle) SL PRN ×2 (10:53→20:44)
--- NOTE | 2018-08-29 13:16 | PDOC.PN ---
- Subjective Encounter Start Date: 08/29/18 Encounter Start Time: 13:15 Subjective: c/o persistant on and off pain in chest & R spinal region -: quite upset that nothing has been done to address the pain -: i went over the results of varoius tests/imaging studies with him again - Objective MAR Reviewed: Yes Vital Signs & Weight: Vital Signs (12 hours) Temp Pulse Resp BP Pulse Ox 08/29/18 06:16 97 08/29/18 03:30 97.7 F 61 18 135/64 100 Weight Weight 291 lb 4.8 oz I&O: 08/28/18 08/29/18 08/30/18 06:59 06:59 06:59 Intake Total 2580 1170 Output Total 1080 675 Balance 1500 495 Result Diagrams: 08/29/18 05:06 08/29/18 05:06 Additional Labs: Accuchecks 08/29/18 08/29/18 08/29/18 11:04 08:52 05:17 POC Glucose 81 89 62 L 08/28/18 08/28/18 08/28/18 21:00 16:39 05:55 POC Glucose 89 131 H 75 Laboratory Tests 08/25/18 08/25/18 08/25/18 04:48 07:53 10:58 Troponin I Less than 0.010 Less than 0.010 Less than 0.010 B-Natriuretic Peptide Triglycerides Cholesterol LDL Cholesterol, Calc HDL Cholesterol 08/25/18 08/26/18 08/26/18 10:58 01:49 01:49 Troponin I 0.012 B-Natriuretic Peptide 22.9 Triglycerides 135 Cholesterol 147 LDL Cholesterol, Calc 67 HDL Cholesterol 53 08/27/18 08/27/18 16:06 16:06 Troponin I Less than 0.010 B-Natriuretic Peptide 67.5 Triglycerides Cholesterol LDL Cholesterol, Calc HDL Cholesterol Phys Exam - Physical Examination Constitutional: NAD HEENT: PERRLA, moist MMs, sclera anicteric, oral pharynx no lesions Neck: no nodes, no JVD, supple, full ROM Respiratory: no wheezing, no rales, no rhonchi, clear to auscultation bilateral Cardiovascular: RRR, no significant murmur, no rub Gastrointestinal: soft, non-tender, no distention, positive bowel sounds Musculoskeletal: no edema, pulses present Neurological: non-focal, normal sensation, moves all 4 limbs Dx/Plan (1) Chest pain Code(s): R07.9 - CHEST PAIN, UNSPECIFIED Status: Acute Comment: non cardiac (2) Severe back pain Code(s): M54.9 - DORSALGIA, UNSPECIFIED Status: Acute Comment: Was able to get up from the bed and walk around w/ assistance, as long as he was able to move "his way". (3) Diabetes mellitus Code(s): E11.9 - TYPE 2 DIABETES MELLITUS WITHOUT COMPLICATIONS Status: Chronic Qualifiers: Diabetes mellitus type: type 2 (4) HTN (hypertension) Code(s): I10 - ESSENTIAL (PRIMARY) HYPERTENSION Status: Chronic (5) Obesity Code(s): E66.9 - OBESITY, UNSPECIFIED Status: Chronic Qualifiers: Body mass index: BMI 34.0-34.9 - Plan plan discussed w/ family, PT/OT, out of bed/ambulate, DVT proph w/SCDs Cath results noted. cont medical management per Cardiology -: US abdo shows Gallstones w/o cholecystitis. HIDA today to r/o same -: HD stable. Labs WNL.on Flexeril TID,lidocaine patch,neurontin, narcotics -: suspect muscle injury /spasms. encouraged pt to work w PT -: will benefit from OP rehab if agrees to that * .Extensive work up negative so far for back pain . * HD stable for [facility] as further work up can be finished as an OP. * will follow. Chest pain management per cardiology. on ASA,plavix. Statin increased yesterday * advise ISS and witholding Glucotrol as blood sugars low at times , if pt permits * stop daily labs * * Consider Pain Medicine consult if pain intractable * Review of Systems - Review of Systems Constitutional: negative: fever, chills, sweats, weakness, malaise, other ENT: negative: Ear Pain, Ear Discharge, Nose Pain, Nose Discharge, Nose Congestion, Mouth Pain, Mouth Swelling, Throat Pain, Throat Swelling, Other Respiratory: negative: Cough, Dry, Shortness of Breath, Hemoptysis, SOB with Excertion, Pleuritic Pain, Sputum, Wheezing Cardiovascular: chest pain. negative: palpitations, orthopnea, paroxysmal nocturnal dyspnea, edema, light headedness, other Gastrointestinal: negative: Nausea, Vomiting, Abdominal Pain, Diarrhea, Constipation, Melena, Hematochezia, Other Genitourinary: negative: Dysuria, Frequency, Incontinence, Hematuria, Retention , Other Musculoskeletal: Back Pain Neurological: negative: Weakness, Numbness, Incoordination, Change in Speech, Confusion, Seizures, Other - Medications/Allergies Allergies/Adverse Reactions: Allergies Allergy/AdvReac Type Severity Reaction Status Date / Time No Known Allergies Allergy Verified 08/25/18 11:40 Medications: Current Medications Acetaminophen/Codeine Phosphate (Tylenol #3) 1 tab PO Q4H PRN PRN Reason: Mild Pain (1-3) Acetaminophen/Codeine Phosphate (Tylenol #3) 2 tab PO Q4H PRN PRN Reason: Moderate Pain (4-6) Aspirin (Aspirin) 325 mg PO DAILY [facility] Last Admin: 08/29/18 10:05 Dose: 325 mg Atorvastatin Calcium (Lipitor) 40 mg PO [facility] Last Admin: 08/28/18 21:18 Dose: 40 mg Clopidogrel Bisulfate (Plavix) 75 mg PO DAILY [facility] Last Admin: 08/29/18 10:05 Dose: 75 mg Cyanocobalamin (Vitamin B-12) 1,000 mcg PO MoWeFr@0900 [facility] Last Admin: 08/28/18 06:29 Dose: 1,000 mcg Cyclobenzaprine HCl (Flexeril) 10 mg PO TID [facility] Last Admin: 08/29/18 10:05 Dose: 10 mg Dextrose/Water (Dextrose 50%) 25 gm SLOW IVP PRN PRN PRN Reason: Hypoglycemia Donepezil HCl (Aricept) 5 mg PO [facility] Last Admin: 08/28/18 21:18 Dose: 5 mg Gabapentin (Neurontin) 300 mg PO BID [facility] Last Admin: 08/29/18 10:05 Dose: 300 mg Glipizide (Glucotrol Xl) 5 mg PO BID[facility] Last Admin: 08/28/18 16:07 Dose: 5 mg Glucagon (Glucagon) 1 mg IM PRN PRN PRN Reason: Hypoglycemia Dextrose/Water (D5w) 1,000 mls @ 0 mls/hr IV .Q0M PRN PRN Reason: Hypoglycemia Sodium Chloride (Normal Saline 0.9%) 1,000 mls @ 100 mls/hr IV .Q10H [facility] Last Admin: 08/29/18 03:35 Dose: 1,000 mls Insulin Human Lispro (Humalog) 0 units SC .MILD SLIDING SCALE PRN PRN Reason: Mild Correctional Scale Insulin Human Lispro (Humalog) 0 units SC .BEDTIME SLIDING SC PRN PRN Reason: Bedtime Correctional Scale Isosorbide Mononitrate (Imdur Er) 30 mg PO DAILY [facility] Ketorolac Tromethamine (Toradol) 15 mg IVP Q6H PRN PRN Reason: Mild Pain (1-3) Stop: 08/31/18 03:04 Last Admin: 08/29/18 10:12 Dose: 15 mg Lidocaine (Lidoderm 5% Patch) 1 patch TD DAILYPRN PRN PRN Reason: Pain Loratadine (Claritin) 10 mg PO DAILY [facility] Last Admin: 08/28/18 06:28 Dose: 10 mg Miscellaneous Medication (Lidocaine Patch Removal) 1 each TOP DAILYPRN PRN PRN Reason: Remove PATCH after 12 HRS Morphine Sulfate (Morphine) 2 mg SLOW IVP Q4H PRN PRN Reason: Moderate to Severe Pain (6-10) Last Admin: 08/28/18 21:34 Dose: 2 mg Nitroglycerin (Nitrostat) 0.4 mg SL Q5MIN PRN PRN Reason: Chest Pain Last Admin: 08/29/18 10:53 Dose: 0.4 mg Pantoprazole Sodium (Protonix) 40 mg PO DAILY [facility] Last Admin: 08/28/18 06:29 Dose: 40 mg Polyethylene Glycol (Miralax) 17 gm PO DAILY [facility] Last Admin: 08/28/18 16:08 Dose: 17 gm Sodium Chloride (Flush - Normal Saline) 10 ml IVF Q12HR [facility] Last Admin: 08/28/18 21:21 Dose: Not Given Sodium Chloride (Flush - Normal Saline) 10 ml IVF PRN PRN PRN Reason: Saline Flush Triamterene/HCTZ (Maxzide-25) 2 tab PO DAILY [facility] Last Admin: 08/29/18 10:05 Dose: 2 tab
[2018-08-29] MEDS: Loratadine 10 MG TAB PO SCH (15:25)
--- NOTE | 2018-08-29 15:39 | NM ---
RADIONUCLIDE HEPATOBILIARY SCAN AND GALLBLADDER EJECTION FRACTION: Date: 08/29/18 HISTORY: Postprandial right upper quadrant pain. Gallstones. FINDINGS: Early images show physiologic uptake of radiotracer throughout the hepatic parenchyma. Gallbladder vi sible at 13 minutes. Small bowel seen at 31 minute. After administration of 8 oz fatty meal in place of pharmacologic intervention, there is minimal excretion of radiotracer from the gallbladder. Ejecti on fraction calculated at 9%. IMPRESSION: 1. No evidence of common duct or cystic duct obstruction. 2. Abnormal ejection fraction, consistent with chronic gallbladder dyskinesis. POS: [facility]
[2018-08-29] MEDS: Polyethylene Glycol 3350 17 GM Packet PO SCH (15:41)
--- NOTE | 2018-08-29 17:58 | PQF ---
LENA HILL RICHA MD [id number] [id number] [id number] CLINICAL DOCUMENTATION IMPROVEMENT CLARIFICATION FORM: ICD-10 Updated PLEASE DO AN ADDENDUM TO THE PROGRESS NOTE WITH ANY DOCUMENTATION UPDATES OR ADDITIONS AND CARRY THROUGH TO DC SUMMARY. THANK YOU. DATE: 08/29/2018 ATTN: DR. MOORE Please exercise your independent, professional judgment in responding to the clarification form. Clinical indicators are provided on the bottom of this form for your review Please check appropriate box(s): [ ] Coronary Artery Disease/Atherosclerosis [ ] Unstable Angina [X ] Other diagnosis _stable angina [ ] Unable to determine IMPORTANT In addition, please specify: Present on Admission (POA): [ X ] Yes [ ] No [ ] Unable to determine For continuity of documentation, please document condition throughout progress notes and discharge summary. Thank You. CLINICAL INDICATORS - SIGNS / SYMPTOMS / LABS 08/25-H&P: ALSO HAD CHEST PAIN X 2 WKS INTERMITTENTLY AND THINKS IT IS ASSOCIATED WITH EITHER CHRONIC SHOULDER ISSUES OR HIATAL HERNIA. HX OF CATH WITH 20% BLOCKAGE. DX ATYPICAL CHEST PAIN. 08/27: STRESS TEST: SMALL FOCUS OF REVERSIBILITY INVOLVING ANTEROLAT SEPTUM AND APEX. 08/28-OR: LHC. LVEF 60%. NONOBSTRUCTIVE PLAQUE IN LAD CIRCUMFLEX AND RCA WITH SOME DISTAL ATHEROSCEROSIS. 80% OSTIAL LESION IN SMALL DIAMETER DIAGONAL BRANCH. MEDICAL THERAPY INDICATED. RISK FACTORS DM2 HYPERLIPIDEMIA HTN OBESITY TREATMENTS CARDIOLOGY CONSULT HEART CATH STATINS MEDICAL MANAGEMENT Thank you, Kylah (This form is maintained as a part of the permanent medical record) 2014 [employer]. All Rights Reserved Kylah Leonard RN, CDIS [email or web address] [phone] MTDD
--- NOTE | 2018-08-29 20:07 | PRG ---
DATE OF SERVICE: 08/29/2018 SUBJECTIVE: Mr. Poon is continuing to have discomfort. He is having pressure and tightness going across his chest intermittently. It is not worse with exertion, but it is better with nitroglycerin. OBJECTIVE: VITAL SIGNS: Blood pressure elevated at 165/70, pulse 52 and regular. LUNGS: Clear. CARDIAC: Normal S1 and normal S2. ABDOMEN: Soft and nontender. Further testing indicated that the patient does have gallstones, and he also has a low ejection fraction indicating he may have some chronic cholecystitis. I had long discussion with Mr. Poon. Also reviewed the cath films again. The only significant stenosis he has is in a diagonal branch and ostial location with some calcium and he is not a good candidate at all for interventional therapy. I think the risk intravenously outweighs the benefit, but this could be a source of anginal chest pain. He also does have intermittent right upper quadrant pain due to the gallbladder in all likelihood, but that is infrequent. ASSESSMENT: 1. Coronary artery disease, best treated medically. 2. Gallstones, moderately symptomatic. 3. Diabetes. 4. Obesity. 5. Hypertension. 6. Intermittent mild low heart rates, but not symptomatic in terms of extremely low heart rates or pauses. PLAN: 1. Nitroglycerin if needed. 2. Atorvastatin. 3. Need to further treat blood pressure. 4. We will add lisinopril 10 mg a day. Job ID: [id number]
[2018-08-29] MEDS: Donepezil HCl 10 MG TAB PO SCH (20:47)
[2018-08-29] MEDS: Atorvastatin Calcium 40 MG TAB PO SCH (20:47)
[2018-08-30] MEDS: Morphine 2 MG/ML SYRINGE SLOW IVP PRN ×4 (02:02→22:10)
[2018-08-30] MEDS: Aspirin 325 MG TAB PO SCH (09:14)
[2018-08-30] MEDS: Clopidogrel Bisulfate 75 MG TAB PO SCH (09:14)
[2018-08-30] MEDS: Cyanocobalamin (Vitamin B-12) 1,000 MCG TAB PO SCH (09:14)
[2018-08-30] MEDS: Cyclobenzaprine 10 MG TAB PO SCH ×3 (09:14→22:12)
[2018-08-30] MEDS: Gabapentin 300 MG CAP PO SCH ×3 (09:15→20:29)
[2018-08-30] MEDS: Lisinopril 10 MG TAB PO SCH (09:15)
[2018-08-30] MEDS: Loratadine 10 MG TAB PO SCH (09:16)
[2018-08-30] MEDS: Triamterene/Hydrochlorothiazide 37.5 mg/25 mg Tablet PO SCH (09:16)
[2018-08-30] MEDS: Polyethylene Glycol 3350 17 GM Packet PO SCH (09:17)
--- NOTE | 2018-08-30 09:25 | PRG ---
DATE OF SERVICE: 08/30/2018 SUBJECTIVE: Mr. Poon feels better today. He is up and around. He has already had a shower. He has not had any chest pain today. OBJECTIVE: VITAL SIGNS: His blood pressure yesterday 165/70, then 139/62, earlier this morning 105/54; pulse is 70. LUNGS: Clear. CARDIAC: Normal S1, normal S2. ASSESSMENT: 1. Coronary artery disease with a stenosis in the diagonal branch and in the ostial location. Medical therapy is the only realistic option. He has symptoms of intermittent chest tightness with that. 2. Hypercholesterolemia, on medicines. 3. Hypertension, being treated. 4. Morbid obesity. 5. Diabetes. 6. Hypercholesterolemia. 7. He also has gallstones manifested by intermittent right upper quadrant pain. PLAN: 1. He will go home on lisinopril. 2. Aspirin. 3. Plavix. 4. Isosorbide 30 mg a day. 5. Lisinopril 10 mg a day. 6. Triamterene/hydrochlorothiazide. Continue home dose. 7. Atorvastatin up to 40 mg a day. 8. Nitroglycerin as needed for chest pressure tightness. If he has pain unrelieved with 3 nitroglycerin, he should go to the emergency room that was discussed with him. The patient does have intermittent pressure across his chest. I think it is angina, but in a place, I think any type of percutaneous intervention will be high risk as it could jeopardize the main LAD trying to stent the diagonal branch. The patient will be released home, encouraging to walk on a regular basis. Continue to try to lose weight. Job ID: [id number]
--- NOTE | 2018-08-30 13:46 | PDOC.PN ---
- Subjective Encounter Start Date: 08/30/18 Encounter Start Time: 13:44 Subjective: pain much better.no more chest pain -: RN reports aggressive behaviour -: no ON events.one large BM last night after 5 days - Objective MAR Reviewed: Yes Vital Signs & Weight: Vital Signs (12 hours) Temp Pulse Resp BP BP Pulse Ox 08/30/18 11:32 100.1 F H 83 18 176/74 H 94 L 08/30/18 09:05 99.4 F 95 18 141/65 H 96 08/30/18 04:00 97.5 F L 76 12 105/54 L 96 Weight Weight 287 lb 4.8 oz I&O: 08/29/18 08/30/18 08/31/18 06:59 06:59 06:59 Intake Total 1170 1080 Output Total 675 200 250 Balance 495 880 -250 Result Diagrams: 08/29/18 05:06 08/29/18 05:06 Additional Labs: Accuchecks 08/30/18 08/30/18 08/29/18 10:51 05:50 20:11 POC Glucose 134 H 93 111 H 08/29/18 16:39 POC Glucose 97 Radiology Reviewed by me: Yes (HIDA-no cholecystitis) Phys Exam - Physical Examination Constitutional: NAD HEENT: PERRLA, moist MMs, sclera anicteric, oral pharynx no lesions Neck: no nodes, no JVD, supple, full ROM Respiratory: no wheezing, no rales, no rhonchi, clear to auscultation bilateral Cardiovascular: RRR, no significant murmur, no rub Gastrointestinal: soft, non-tender, no distention, positive bowel sounds Musculoskeletal: no edema, pulses present Neurological: non-focal, normal sensation, moves all 4 limbs Psychiatric: normal affect, A&O x 3 Skin: no rash Dx/Plan (1) Chest pain Code(s): R07.9 - CHEST PAIN, UNSPECIFIED Status: Acute Comment: Stable angina .started on Imdur.cont ASA,PlavixACE-,Statin. Ostial 80% lesion on Cath (2) Severe back pain Code(s): M54.9 - DORSALGIA, UNSPECIFIED Status: Acute Comment: working with PT.On neurontin,flexeril,lidocaine patch (3) Diabetes mellitus Code(s): E11.9 - TYPE 2 DIABETES MELLITUS WITHOUT COMPLICATIONS Status: Chronic Qualifiers: Diabetes mellitus type: type 2 (4) HTN (hypertension) Code(s): I10 - ESSENTIAL (PRIMARY) HYPERTENSION Status: Chronic (5) Obesity Code(s): E66.9 - OBESITY, UNSPECIFIED Status: Chronic Qualifiers: Body mass index: BMI 34.0-34.9 - Plan PT/OT, respiratory therapy, incentive spirometry, out of bed/ambulate, DVT proph w/SCDs Pt and family requesting Rehab at [facility].order placed -: requesting hospital bed/BSC/walker.discussed w CM-not covered by his insura -: Ok to transfer to Medical -: complicated pain issues w family & pt upset about the meds.will consult -: Pain Medicine.still suspect muscle spasms.cont meds as above. * .Encouraged to minimize morphine. 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 * No medical necessity for inpt stay. * avoidable day #1. Review of Systems - Review of Systems Constitutional: weakness. negative: fever, chills, sweats, malaise, other ENT: negative: Ear Pain, Ear Discharge, Nose Pain, Nose Discharge, Nose Congestion, Mouth Pain, Mouth Swelling, Throat Pain, Throat Swelling, Other Respiratory: negative: Cough, Dry, Shortness of Breath, Hemoptysis, SOB with Excertion, Pleuritic Pain, Sputum, Wheezing Cardiovascular: negative: chest pain, palpitations, orthopnea, paroxysmal nocturnal dyspnea, edema, light headedness, other Gastrointestinal: negative: Nausea, Vomiting, Abdominal Pain, Diarrhea, Constipation, Melena, Hematochezia, Other Genitourinary: negative: Dysuria, Frequency, Incontinence, Hematuria, Retention , Other Musculoskeletal: Back Pain. negative: Neck Pain, Shoulder Pain, Arm Pain, Hand Pain, Leg Pain, Foot Pain, Other - Medications/Allergies Allergies/Adverse Reactions: Allergies Allergy/AdvReac Type Severity Reaction Status Date / Time No Known Allergies Allergy Verified 08/25/18 11:40 Medications: Current Medications Acetaminophen/Codeine Phosphate (Tylenol #3) 1 tab PO Q4H PRN PRN Reason: Mild Pain (1-3) Acetaminophen/Codeine Phosphate (Tylenol #3) 2 tab PO Q4H PRN PRN Reason: Moderate Pain (4-6) Aspirin (Aspirin) 325 mg PO DAILY [facility] Last Admin: 08/30/18 09:14 Dose: 325 mg Atorvastatin Calcium (Lipitor) 40 mg PO [facility] Last Admin: 08/29/18 20:47 Dose: 40 mg Clopidogrel Bisulfate (Plavix) 75 mg PO DAILY [facility] Last Admin: 08/30/18 09:14 Dose: 75 mg Cyanocobalamin (Vitamin B-12) 1,000 mcg PO MoWeFr@0900 [facility] Last Admin: 08/30/18 09:14 Dose: 1,000 mcg Cyclobenzaprine HCl (Flexeril) 10 mg PO TID [facility] Last Admin: 08/30/18 09:14 Dose: 10 mg Dextrose/Water (Dextrose 50%) 25 gm SLOW IVP PRN PRN PRN Reason: Hypoglycemia Donepezil HCl (Aricept) 5 mg PO [facility] Last Admin: 08/29/18 20:47 Dose: 5 mg Gabapentin (Neurontin) 300 mg PO TID [facility] Last Admin: 08/30/18 09:15 Dose: 300 mg Glipizide (Glucotrol Xl) 5 mg PO BID-AC [facility] Last Admin: 08/30/18 09:18 Dose: Not Given Glucagon (Glucagon) 1 mg IM PRN PRN PRN Reason: Hypoglycemia Dextrose/Water (D5w) 1,000 mls @ 0 mls/hr IV .Q0M PRN PRN Reason: Hypoglycemia Insulin Human Lispro (Humalog) 0 units SC .MILD SLIDING SCALE PRN PRN Reason: Mild Correctional Scale Insulin Human Lispro (Humalog) 0 units SC .BEDTIME SLIDING SC PRN PRN Reason: Bedtime Correctional Scale Isosorbide Mononitrate (Imdur Er) 30 mg PO DAILY [facility] Last Admin: 08/30/18 09:15 Dose: 30 mg Ketorolac Tromethamine (Toradol) 15 mg IVP Q6H PRN PRN Reason: Mild Pain (1-3) Stop: 08/31/18 03:04 Last Admin: 08/29/18 20:50 Dose: 15 mg Lidocaine (Lidoderm 5% Patch) 1 patch TD DAILYPRN PRN PRN Reason: Pain Lisinopril (Zestril) 10 mg PO DAILY [facility] Last Admin: 08/30/18 09:15 Dose: 10 mg Loratadine (Claritin) 10 mg PO DAILY [facility] Last Admin: 08/30/18 09:16 Dose: 10 mg Miscellaneous Medication (Lidocaine Patch Removal) 1 each TOP DAILYPRN PRN PRN Reason: Remove PATCH after 12 HRS Morphine Sulfate (Morphine) 2 mg SLOW IVP Q4H PRN PRN Reason: Moderate to Severe Pain (6-10) Last Admin: 08/30/18 02:02 Dose: 2 mg Nitroglycerin (Nitrostat) 0.4 mg SL Q5MIN PRN PRN Reason: Chest Pain Last Admin: 08/29/18 20:44 Dose: 0.4 mg Pantoprazole Sodium (Protonix) 40 mg PO DAILY [facility] Last Admin: 08/30/18 09:16 Dose: 40 mg Polyethylene Glycol (Miralax) 17 gm PO DAILY [facility] Last Admin: 08/30/18 09:17 Dose: Not Given Sodium Chloride (Flush - Normal Saline) 10 ml IVF Q12HR [facility] Last Admin: 08/30/18 10:26 Dose: Not Given Sodium Chloride (Flush - Normal Saline) 10 ml IVF PRN PRN PRN Reason: Saline Flush Last Admin: 08/30/18 02:10 Dose: 10 ml Triamterene/HCTZ (Maxzide-25) 2 tab PO DAILY [facility] Last Admin: 08/30/18 09:16 Dose: 2 tab
[2018-08-30] MEDS: Donepezil HCl 10 MG TAB PO SCH (20:27)
[2018-08-30] MEDS: Atorvastatin Calcium 40 MG TAB PO SCH (20:29)
[2018-08-30] MEDS: Ketorolac Tromethamine 30 MG/ML VIAL IVP PRN (20:30)
[2018-08-30] MEDS ORDERED: Sodium Chloride 0.9% 1,000 ML IV SCH (21:30)
[2018-08-31] MEDS: Morphine 2 MG/ML SYRINGE SLOW IVP PRN ×4 (02:10→22:24)
[2018-08-31 06:15] LABS: Anion Gap 12 mmol/L (10-20); BUN (Urea Nitrogen) 17 mg/dL (8.4-25.7); Calc. Creatinine Clearance 137 mL/min (70-130); Calcium 9.1 mg/dL (7.8-10.44); Carbon Dioxide 28 mmol/L (23-31); Chloride 105 mmol/L (98-107); Estimated GFR-MDRD 86; Glucose 105 mg/dL (83-110); Potassium 4.2 mmol/L (3.5-5.1); Sodium 141 mmol/L (136-145)
[2018-08-31] MEDS: Clopidogrel Bisulfate 75 MG TAB PO SCH (08:37)
[2018-08-31] MEDS: Loratadine 10 MG TAB PO SCH (08:37)
[2018-08-31] MEDS: Polyethylene Glycol 3350 17 GM Packet PO SCH (08:37)
[2018-08-31] MEDS: Aspirin 325 MG TAB PO SCH (08:37)
[2018-08-31] MEDS: Gabapentin 300 MG CAP PO SCH ×3 (08:38→21:53)
[2018-08-31] MEDS: Lisinopril 10 MG TAB PO SCH (08:38)
[2018-08-31] MEDS: HYDROcodone/Acetaminophen 10/325 mg Tablet PO PRN ×2 (08:38→15:41)
[2018-08-31] MEDS: Cyclobenzaprine 10 MG TAB PO SCH ×3 (08:38→21:51)
[2018-08-31] MEDS: Triamterene/Hydrochlorothiazide 37.5 mg/25 mg Tablet PO SCH (09:26)
[2018-08-31] MEDS ORDERED: Gadobenate Dimeglumine 529 MG/1 ML (20ML VIAL) ONE (10:17)
--- NOTE | 2018-08-31 13:19 | PDOC.PN ---
- Subjective Encounter Start Date: 08/31/18 Encounter Start Time: 13:17 Subjective: c/o vertigo from pain meds but do not want to stop it yet -: c/o few seconds of left hand cramps & feels it might be stroke - Objective MAR Reviewed: Yes Vital Signs & Weight: Vital Signs (12 hours) Temp Pulse Resp BP BP BP Pulse Ox 08/31/18 12:00 97.4 F L 57 L 16 126/60 95 08/31/18 08:38 134/60 08/31/18 08:00 97.6 F 63 18 134/60 97 08/31/18 02:00 98.2 F 75 18 140/66 Weight Weight 287 lb 4.8 oz I&O: 08/30/18 08/31/18 09/01/18 06:59 06:59 06:59 Intake Total 1080 430 Output Total 200 800 Balance 880 -370 Result Diagrams: 08/29/18 05:06 08/31/18 05:37 Additional Labs: Accuchecks 08/31/18 08/30/18 11:54 17:29 POC Glucose 105 142 H Phys Exam - Physical Examination Constitutional: NAD HEENT: PERRLA, moist MMs, sclera anicteric, oral pharynx no lesions Neck: no nodes, no JVD, supple, full ROM Respiratory: no wheezing, no rales, no rhonchi, clear to auscultation bilateral Cardiovascular: RRR, no significant murmur, no rub Gastrointestinal: soft, non-tender, no distention, positive bowel sounds Musculoskeletal: no edema, pulses present Neurological: non-focal, normal sensation, moves all 4 limbs Psychiatric: normal affect, A&O x 3 Skin: no rash, normal turgor, cap refill <2 seconds Dx/Plan (1) Chest pain Code(s): R07.9 - CHEST PAIN, UNSPECIFIED Status: Acute Comment: Stable angina .started on Imdur.cont ASA,PlavixACE-,Statin. Ostial 80% lesion on Cath (2) Severe back pain Code(s): M54.9 - DORSALGIA, UNSPECIFIED Status: Acute Comment: working with PT.On neurontin,flexeril,lidocaine patch (3) Diabetes mellitus Code(s): E11.9 - TYPE 2 DIABETES MELLITUS WITHOUT COMPLICATIONS Status: Chronic Qualifiers: Diabetes mellitus type: type 2 (4) HTN (hypertension) Code(s): I10 - ESSENTIAL (PRIMARY) HYPERTENSION Status: Chronic (5) Obesity Code(s): E66.9 - OBESITY, UNSPECIFIED Status: Chronic Qualifiers: Body mass index: BMI 34.0-34.9 - Plan plan discussed w/ family, PT/OT, DVT proph w/SCDs reassured pt that hand cramps likley muscle issue but pt not convinced -: will check MRI brain -: O/W pain control per Pain Med.appreciate input -: awaiting rehab. HD stable -: avoidable day #2 * . Review of Systems - Review of Systems Constitutional: weakness, malaise Cardiovascular: negative: chest pain, palpitations, orthopnea, paroxysmal nocturnal dyspnea, edema, light headedness, other Gastrointestinal: negative: Nausea, Vomiting, Abdominal Pain, Diarrhea, Constipation, Melena, Hematochezia, Other Genitourinary: negative: Dysuria, Frequency, Incontinence, Hematuria, Retention , Other Musculoskeletal: negative: Neck Pain, Shoulder Pain, Arm Pain, Back Pain, Hand Pain, Leg Pain, Foot Pain, Other Neurological: negative: Weakness, Numbness, Incoordination, Change in Speech, Confusion, Seizures, Other - Medications/Allergies Allergies/Adverse Reactions: Allergies Allergy/AdvReac Type Severity Reaction Status Date / Time No Known Allergies Allergy Verified 08/25/18 11:40 Medications: Current Medications Hydrocodone Bitart/Acetaminophen ([place] 10/325) 1 tab PO Q4H PRN PRN Reason: Pain Last Admin: 08/31/18 08:38 Dose: 1 tab Aspirin (Aspirin) 325 mg PO DAILY [facility] Last Admin: 08/31/18 08:37 Dose: 325 mg Atorvastatin Calcium (Lipitor) 40 mg PO HS [facility] Last Admin: 08/30/18 20:29 Dose: 40 mg Clopidogrel Bisulfate (Plavix) 75 mg PO DAILY [facility] Last Admin: 08/31/18 08:37 Dose: 75 mg Cyanocobalamin (Vitamin B-12) 1,000 mcg PO MoWeFr@0900 [facility] Last Admin: 08/30/18 09:14 Dose: 1,000 mcg Cyclobenzaprine HCl (Flexeril) 10 mg PO TID [facility] Last Admin: 08/31/18 08:38 Dose: 10 mg Dextrose/Water (Dextrose 50%) 25 gm SLOW IVP PRN PRN PRN Reason: Hypoglycemia Donepezil HCl (Aricept) 5 mg PO HS [facility] Last Admin: 08/30/18 20:27 Dose: 5 mg Gabapentin (Neurontin) 300 mg PO TID [facility] Last Admin: 08/31/18 08:38 Dose: 300 mg Glipizide (Glucotrol Xl) 5 mg PO BID-AC [facility] Last Admin: 08/31/18 08:41 Dose: Not Given Glucagon (Glucagon) 1 mg IM PRN PRN PRN Reason: Hypoglycemia Dextrose/Water (D5w) 1,000 mls @ 0 mls/hr IV .Q0M PRN PRN Reason: Hypoglycemia Sodium Chloride (Normal Saline 0.9%) 1,000 mls @ 0 mls/hr IV .Q0M [facility] Last Admin: 08/30/18 22:11 Dose: 1,000 mls Insulin Human Lispro (Humalog) 0 units SC .MILD SLIDING SCALE PRN PRN Reason: Mild Correctional Scale Insulin Human Lispro (Humalog) 0 units SC .BEDTIME SLIDING SC PRN PRN Reason: Bedtime Correctional Scale Isosorbide Mononitrate (Imdur Er) 30 mg PO DAILY [facility] Last Admin: 08/31/18 08:37 Dose: 30 mg Lidocaine (Lidoderm 5% Patch) 1 patch TD DAILYPRN PRN PRN Reason: Pain Lisinopril (Zestril) 10 mg PO DAILY [facility] Last Admin: 08/31/18 08:38 Dose: 10 mg Loratadine (Claritin) 10 mg PO DAILY [facility] Last Admin: 08/31/18 08:37 Dose: 10 mg Miscellaneous Medication (Lidocaine Patch Removal) 1 each TOP DAILYPRN PRN PRN Reason: Remove PATCH after 12 HRS Miscellaneous Medication (Movantik) 25 mg PO DAILY [facility] Last Admin: 08/31/18 08:42 Dose: 25 mg Morphine Sulfate (Morphine) 2 mg SLOW IVP Q4H PRN PRN Reason: Moderate to Severe Pain (7-10) Last Admin: 08/31/18 10:27 Dose: 2 mg Nitroglycerin (Nitrostat) 0.4 mg SL Q5MIN PRN PRN Reason: Chest Pain Last Admin: 08/29/18 20:44 Dose: 0.4 mg Pantoprazole Sodium (Protonix) 40 mg PO DAILY [facility] Last Admin: 08/31/18 08:38 Dose: 40 mg Polyethylene Glycol (Miralax) 17 gm PO DAILY [facility] Last Admin: 08/31/18 08:37 Dose: 17 gm Sodium Chloride (Flush - Normal Saline) 10 ml IVF Q12HR [facility] Last Admin: 08/31/18 08:41 Dose: 10 ml Sodium Chloride (Flush - Normal Saline) 10 ml IVF PRN PRN PRN Reason: Saline Flush Last Admin: 08/30/18 02:10 Dose: 10 ml Triamterene/HCTZ (Maxzide-25) 2 tab PO DAILY [facility] Last Admin: 08/31/18 09:26 Dose: 2 tab
--- NOTE | 2018-08-31 14:43 | CON ---
DATE OF CONSULTATION: 08/31/2018 REASON FOR CONSULTATION: Low back pain. CHIEF COMPLAINT: Low back pain, whole body pain, limiting discharge and activities of daily living. HISTORY OF PRESENT ILLNESS: Mr. Poon is a 73-year-old male with past medical history of diabetes mellitus type 2, hyperlipidemia, hypertension, diabetic neuropathy, chronic back pain and GERD with recent admission to the emergency room on August 25, 2018, for pain after sustaining a fall 3 days prior to admission. He reports pain that started after a fall from an incline and actually catching himself before he hit the ground from the fall. He reports an immediate pain that started from the right heel that radiates up his entire body and describes it as a "knife stabbing my body," chest pain as well as low back pain. He also reports some intermittent pain on the right lower lumbar that radiates at times to the right lateral hip. He denies any bowel or bladder dysfunction or no neurological deficits after the fall. He tells me he actually went back to work for 2 days after the event and then he came to the emergency room for evaluation secondary to the pain becoming so severe. He has been admitted, getting morphine 2 mg IV every 4 hours for his pain as well as his home medications, which include neuropathic medications for diabetic neuropathy, gabapentin 900 mg daily as well as Flexeril 10 mg 1 p.o. q.8h as needed. The morphine seems to relieve his pain, however it is not lasting for him for any period of time. He has ambulated in the hallways apparently in the past there too with assist, using single tip cane x2 and slowly improving with his gait. However again the pain is still limiting. It appears like he has had some Tylenol No. 3 that has been ordered, I am not sure how many of these he has tried for oral pain relief; however he does tell me he gets no relief with that medication for pain. He has had tramadol on and off at home in the past for pain with no relief reported as well. He actually has what seems like orders to discharge to rehab in [place]; however he apparently refused discharge yesterday per staff due to his pain not being controlled. The patient has not had a bowel movement in the past 5 days; however he reports the first bowel movement last night. He has been followed by cardiology, Dr. Cortez, while admitted for chest pain and is being followed for coronary artery disease with some stenosis, medication management is planned with followup with Dr. Cortez already in place. He has undergone imaging studies, which reveal x-rays of the sacrum and coccyx are negative without any acute abnormality, chronic changes but no acute fractures. Thoracic CT shows degenerative changes without any vertebral compression fractures reported. Lumbar CT shows multilevel degenerative changes without any vertebral compression fracture reported. He had a lumbar MRI, which indicated degenerative changes in lumbar spine, which seem to be most severe at L4-L5 where he has moderate central canal stenosis secondary to facet hypertrophy as well as bilateral foraminal narrowing that is moderate--to-severe on the right, [id number] on the left. At L2-L3, L3-L4 , L5-S1, there are different varying degrees of foraminal narrowing on the right and left as well as bilateral facet hypertrophy noted with some fluid in facet joints at multiple levels as well. PAST MEDICAL HISTORY: Includes diabetes mellitus type 2, hyperlipidemia, hypertension, diabetic neuropathy, GERD, venous insufficiency, chronic back pain , multiple joint replacements. PAST SURGICAL HISTORY: Includes bilateral knee replacements, left hip surgery. ALLERGIES: NO KNOWN DRUG ALLERGIES. SOCIAL HISTORY: The patient tells me he lives at home with his spouse. He does use a single tip cane for assistance. He is independent with activities of daily living as well as driving, no history of alcohol use, no drug use, no IV drug use. FAMILY HISTORY: Positive for heart disease. CURRENT PAIN MEDICATIONS: Include: 1. Toradol IV. 2. Morphine 2 mg IV q.4 hours. 3. Tylenol No. 3, p.o. 4. Gabapentin 300 mg 1 p.o. t.i.d. 5. Flexeril 10 mg tablet 1 p.o. t.i.d as needed for spasms. All of his medications were reviewed in addition to pain medicines on SEP. REVIEW OF SYSTEMS: Review of systems is negative other than the positive in the history of present illness. PHYSICAL EXAMINATION: VITAL SIGNS: His blood pressure is 140/66, temp is 98.2, heart rate is 75, respirations 18. GENERAL: The patient is sitting up in bed, alert, oriented x3, appropriate. He does grimace some with position changes in bed. HEENT: Normocephalic, atraumatic. RESPIRATORY: Respirations are symmetrical and unlabored. ABDOMEN: Soft, nontender, nondistended. He is obese. EXTREMITIES: The patient is moving all extremities against gravity while in bed. There is trace edema to the bilateral lower extremities. Bilateral lower extremity strength is +4/5 against gravity, bilateral straight leg raises negative from a sitting position. There is no deficits with plantar dorsiflexion bilaterally, no pain reported. He has slightly diminished sensation to cold, to the bilateral lower extremities in stocking like pattern. Bilateral patellar reflexes are deferred. There are absent ankle jerks bilaterally. Moving bilateral upper extremities, 5 /5 against gravity. Bilateral upper extremity reflex is 2+ and equal. The patient did stand for me and took about 4-5 steps using assistance with 2 of his canes, he is ataxic; however his gait is short stride and he does have pain with standing and ambulation in the low back. Cervical/thoracic/lumbar spine. Cervical spine with no vertebral body tenderness, no spasms. Thoracic spine with no vertebral tenderness on exam. Lumbar spine. In the lower lumbar facets, he has tenderness with right-sided tenderness laterally to the right of L4-L5 region. There is no lumbar vertebral spine tenderness on exam. Neurological: Clonus is negative, again he is alert and oriented x3. ASSESSMENT AND PLAN: 1. Lumbar stenosis. A 73-year-old patient admitted after a mechanical fall with continued reports of pain that is affecting activities, mobility and discharge from acute facility. His low back pain is likely resulting from recent mechanical injury; however he does have some underlying lumbar stenosis noted on recent imaging that is likely contributing to his pain. In L4-L5, he has some moderate central canal stenosis with [id number] right and [id number] left foraminal narrowing, again likely causative agent for his pain radiating to the right hip region. Recommendation is to continue to mobilize with therapy, continue neuropathic medications with the opportunity to increase, if needed. Start hydrocodone 10/325 mg tablet instead of Tylenol No. 3, which has been noneffective in the past. We will start the hydrocodone at 1 tablet p.o. q.6 hours for oral pain control, planning to limit his need for IV morphine. The goal is to get him on oral narcotics as well as neuropathic medicines and discharge to rehab to improve function as well as mobility. I have recommended that he follow up with pain and spine on outpatient basis for possible lumbar AJ, should his pain continue. 2. Facet hypertrophy: Noted at multiple levels of lumbar spine on imaging, likely causative agent of bilateral low back pain that is chronic. Consider facet injections in the future on outpatient basis. 3. Opioid-induced constipation. Continue to encourage fluids, I will start Movantik 25 mg tablet 1 p.o. q. daily, continue MiraLax as needed with the Movantik for stools. We will likely continue to require Movantik while on opioids for pain control. 4. Chest pain. This is being managed by Cardiology, medication management plan with no interventional procedures pending. 5. Diabetes. 6. Hypertension. Job ID: [id number] [facility]
--- NOTE | 2018-08-31 15:58 | MRI ---
MRI BRAIN WITHOUT AND WITH CONTRAST: Comparison: 03-15-14 History: Vertigo. Visual disturbance. CVA versus TIA. Technique: Multiplanar multisequence MR images were obtained of the brain without and with IV contras t. FINDINGS: This exam is limited secondary to motion artifact. There are a few scattered foci of high FLAIR signa l in the subcortical and periventricular white matter, likely secondary to small vessel ischemic dise ase. No restricted diffusion or abnormal enhancement are seen on this exam. There is no evidence of hydrocephalus intracranial hemorrhage, or extraaxial fluid collection. The ex pected flow voids are present. The corpus callosum, pituitary, and craniocervical junction are unrema rkable. The calvarium and overlying soft tissues are unremarkable. The visualized paranasal sinuses and masto id air cells are well aerated. IMPRESSION: 1. No evidence of acute intracranial abnormality. 2. Mild small vessel ischemic disease. POS: [facility]
[2018-08-31] MEDS ORDERED: HYDROcodone/Acetaminophen 10/325 mg Tablet PO PRN (18:55)
[2018-08-31] MEDS: Atorvastatin Calcium 40 MG TAB PO SCH (21:53)
[2018-08-31] MEDS: Donepezil HCl 10 MG TAB PO SCH (21:53)
[2018-08-31] MEDS ORDERED: diphenhydrAMINE 50 MG/ML VIAL IVP PRN (23:15)
[2018-09-01] MEDS: Morphine 2 MG/ML SYRINGE SLOW IVP PRN (08:09)
[2018-09-01] MEDS: Clopidogrel Bisulfate 75 MG TAB PO SCH (08:59)
[2018-09-01] MEDS: Polyethylene Glycol 3350 17 GM Packet PO SCH (08:59)
[2018-09-01] MEDS: Loratadine 10 MG TAB PO SCH (08:59)
[2018-09-01] MEDS: Gabapentin 300 MG CAP PO SCH ×3 (08:59→21:28)
[2018-09-01] MEDS: Lisinopril 10 MG TAB PO SCH (09:01)
[2018-09-01] MEDS: Aspirin 325 MG TAB PO SCH (09:01)
[2018-09-01] MEDS: Cyclobenzaprine 10 MG TAB PO SCH ×3 (09:01→21:28)
[2018-09-01] MEDS: Triamterene/Hydrochlorothiazide 37.5 mg/25 mg Tablet PO SCH (09:02)
[2018-09-01] MEDS: Cyanocobalamin (Vitamin B-12) 1,000 MCG TAB PO SCH (09:04)
[2018-09-01] MEDS: HYDROcodone/Acetaminophen 5/325 mg Tablet PO PRN ×3 (13:18→21:29)
--- NOTE | 2018-09-01 14:00 | PDOC.PN ---
- Subjective Encounter Start Date: 09/01/18 Encounter Start Time: 13:58 Subjective: feels much better today and woalked a little w pain medicine people - Objective MAR Reviewed: Yes Vital Signs & Weight: Vital Signs (12 hours) Temp Pulse Resp BP BP Pulse Ox 09/01/18 09:01 151/70 H 09/01/18 08:00 98.6 F 75 18 151/70 H 98 09/01/18 04:25 96 Weight Weight 287 lb 4.8 oz I&O: 08/31/18 09/01/18 09/02/18 06:59 06:59 06:59 Intake Total 430 1270 Output Total 800 1650 Balance -370 -380 Result Diagrams: 08/29/18 05:06 08/31/18 05:37 Additional Labs: Accuchecks 09/01/18 09/01/18 08/31/18 12:42 05:38 20:17 POC Glucose 105 93 180 H 08/31/18 15:41 POC Glucose 125 H Phys Exam - Physical Examination Constitutional: NAD HEENT: PERRLA, moist MMs, sclera anicteric, oral pharynx no lesions Neck: no nodes, no JVD, supple, full ROM Respiratory: no wheezing, no rales, no rhonchi, clear to auscultation bilateral Cardiovascular: RRR, no significant murmur Gastrointestinal: soft, non-tender, no distention, positive bowel sounds Musculoskeletal: no edema, pulses present Neurological: non-focal, normal sensation, moves all 4 limbs Psychiatric: normal affect, A&O x 3 Skin: no rash Dx/Plan (1) Chest pain Code(s): R07.9 - CHEST PAIN, UNSPECIFIED Status: Acute Comment: Stable angina .started on Imdur.cont ASA,PlavixACE-,Statin. Ostial 80% lesion on Cath (2) Severe back pain Code(s): M54.9 - DORSALGIA, UNSPECIFIED Status: Acute Comment: working with PT.On neurontin,flexeril,lidocaine patch (3) Diabetes mellitus Code(s): E11.9 - TYPE 2 DIABETES MELLITUS WITHOUT COMPLICATIONS Status: Chronic Qualifiers: Diabetes mellitus type: type 2 (4) HTN (hypertension) Code(s): I10 - ESSENTIAL (PRIMARY) HYPERTENSION Status: Chronic (5) Obesity Code(s): E66.9 - OBESITY, UNSPECIFIED Status: Chronic Qualifiers: Body mass index: BMI 34.0-34.9 - Plan respiratory therapy, incentive spirometry, DVT proph w/SCDs cont pain meds per Pain MD. -: rehab pending .avoidable day #3 d/t insurance authorization pending * . Review of Systems - Review of Systems Constitutional: negative: fever, chills, sweats, weakness, malaise, other ENT: negative: Ear Pain, Ear Discharge, Nose Pain, Nose Discharge, Nose Congestion, Mouth Pain, Mouth Swelling, Throat Pain, Throat Swelling, Other Respiratory: negative: Cough, Dry, Shortness of Breath, Hemoptysis, SOB with Excertion, Pleuritic Pain, Sputum, Wheezing Cardiovascular: negative: chest pain, palpitations, orthopnea, paroxysmal nocturnal dyspnea, edema, light headedness, other Gastrointestinal: negative: Nausea, Vomiting, Abdominal Pain, Diarrhea, Constipation, Melena, Hematochezia, Other Genitourinary: negative: Dysuria, Frequency, Incontinence, Hematuria, Retention , Other Musculoskeletal: negative: Neck Pain, Shoulder Pain, Arm Pain, Back Pain, Hand Pain, Leg Pain, Foot Pain, Other Neurological: negative: Weakness, Numbness, Incoordination, Change in Speech, Confusion, Seizures, Other - Medications/Allergies Allergies/Adverse Reactions: Allergies Allergy/AdvReac Type Severity Reaction Status Date / Time No Known Allergies Allergy Verified 08/25/18 11:40 Medications: Current Medications Hydrocodone Bitart/Acetaminophen ([place] 5/325) 1 tab PO Q6H PRN PRN Reason: Pain Last Admin: 09/01/18 13:18 Dose: 1 tab Aspirin (Aspirin) 325 mg PO DAILY [facility] Last Admin: 09/01/18 09:01 Dose: 325 mg Atorvastatin Calcium (Lipitor) 40 mg PO HS [facility] Last Admin: 08/31/18 21:53 Dose: 40 mg Clopidogrel Bisulfate (Plavix) 75 mg PO DAILY [facility] Last Admin: 09/01/18 08:59 Dose: 75 mg Cyanocobalamin (Vitamin B-12) 1,000 mcg PO MoWeFr@0900 [facility] Last Admin: 09/01/18 09:04 Dose: 1,000 mcg Cyclobenzaprine HCl (Flexeril) 10 mg PO TID [facility] Last Admin: 09/01/18 09:01 Dose: 10 mg Dextrose/Water (Dextrose 50%) 25 gm SLOW IVP PRN PRN PRN Reason: Hypoglycemia Diphenhydramine HCl (Benadryl) 25 mg IVP Q6H PRN PRN Reason: Itching & Insomnia Last Admin: 08/31/18 23:21 Dose: 25 mg Donepezil HCl (Aricept) 5 mg PO HS [facility] Last Admin: 08/31/18 21:53 Dose: 5 mg Gabapentin (Neurontin) 300 mg PO TID [facility] Last Admin: 09/01/18 08:59 Dose: 300 mg Glipizide (Glucotrol Xl) 5 mg PO BID-AC [facility] Last Admin: 09/01/18 09:04 Dose: Not Given Glucagon (Glucagon) 1 mg IM PRN PRN PRN Reason: Hypoglycemia Dextrose/Water (D5w) 1,000 mls @ 0 mls/hr IV .Q0M PRN PRN Reason: Hypoglycemia Sodium Chloride (Normal Saline 0.9%) 1,000 mls @ 0 mls/hr IV .Q0M [facility] Last Admin: 08/30/18 22:11 Dose: 1,000 mls Insulin Human Lispro (Humalog) 0 units SC .MILD SLIDING SCALE PRN PRN Reason: Mild Correctional Scale Insulin Human Lispro (Humalog) 0 units SC .BEDTIME SLIDING SC PRN PRN Reason: Bedtime Correctional Scale Isosorbide Mononitrate (Imdur Er) 30 mg PO DAILY [facility] Last Admin: 09/01/18 08:59 Dose: 30 mg Lidocaine (Lidoderm 5% Patch) 1 patch TD DAILYPRN PRN PRN Reason: Pain Last Admin: 09/01/18 08:20 Dose: 1 patch Lisinopril (Zestril) 10 mg PO DAILY [facility] Last Admin: 09/01/18 09:01 Dose: 10 mg Loratadine (Claritin) 10 mg PO DAILY [facility] Last Admin: 09/01/18 08:59 Dose: 10 mg Miscellaneous Medication (Lidocaine Patch Removal) 1 each TOP DAILYPRN PRN PRN Reason: Remove PATCH after 12 HRS Miscellaneous Medication (Movantik) 25 mg PO DAILY [facility] Last Admin: 09/01/18 09:01 Dose: 25 mg Morphine Sulfate (Morphine) 2 mg SLOW IVP Q4H PRN PRN Reason: Moderate to Severe Pain (7-10) Last Admin: 09/01/18 08:09 Dose: 2 mg Nitroglycerin (Nitrostat) 0.4 mg SL Q5MIN PRN PRN Reason: Chest Pain Last Admin: 08/29/18 20:44 Dose: 0.4 mg Pantoprazole Sodium (Protonix) 40 mg PO DAILY [facility] Last Admin: 09/01/18 08:59 Dose: 40 mg Polyethylene Glycol (Miralax) 17 gm PO DAILY [facility] Last Admin: 09/01/18 08:59 Dose: 17 gm Sodium Chloride (Flush - Normal Saline) 10 ml IVF Q12HR [facility] Last Admin: 09/01/18 13:04 Dose: Not Given Sodium Chloride (Flush - Normal Saline) 10 ml IVF PRN PRN PRN Reason: Saline Flush Last Admin: 08/30/18 02:10 Dose: 10 ml Triamterene/HCTZ (Maxzide-25) 2 tab PO DAILY [facility] Last Admin: 09/01/18 09:02 Dose: 2 tab
--- NOTE | 2018-09-01 17:37 | PRG ---
DATE OF SERVICE: 09/01/2018 SUBJECTIVE: Mr. Poon states his pain has been manageable while in bed and with activities around the room over the past 24 hours. He has only required 3 doses of IV morphine 2 mg in the past 24 hours. He had a single dose of [place] 10 mg one- half tablet in the past 24 hours. Mr. Poon reports adequate pain relief associated with the [place] dose; however, he is concerned about associated drowsiness. He denies any other side effects associated with the [place]. During our visit, Mr. Poon was able to transfer from lying to sitting and sitting to standing with minimal assistance and reported no pain with activity. He was able to ambulate around the room with minimal contact assistance. He uses 2 single-tip canes and has a slow shuffling gait, but is stable. He was able to walk down the oncology hallway and back without significant discomfort. He was also able to stand at the bedside and urinate into the urinal without any assistance or significant pain. He was also able to transfer from standing to sitting and from sitting to lying back in bed. Mr. Poon stated his pain after getting back into bed had increased to approximately 8 on a scale of 1-10. The increase in pain was associated with the activity discussed above. PHYSICAL EXAMINATION: GENERAL: Mr. Poon is awake, alert, and oriented and appropriate. His speech is clear and appropriate. He is non-somnolent. Sitting comfortably in bed; conversant. is present. BACK: He has no midline tenderness. He has mild reproducible tenderness over the lumbar paraspinal muscles. No pain with flexion or extension of the lumbar spine. Straight leg raises are negative bilaterally. NEUROLOGIC: Strength in the lower extremities is intact and symmetric. Reflexes in the lower extremities is intact and symmetric. ASSESSMENT: Lumbar stenosis with neurogenic claudication. PLAN: Mr. Poon continues to have some concerns about drowsiness associated with [place] and he is not sure if he can discharge to rehab without using the IV morphine for pain. We had a long discussion today regarding an appropriate discharge pain medicine regimen; he understands we are to avoid using the morphine so that we can get an accurate assessment of how much pain relief the [place] alone will provide. We will decrease [place] to 5/325 one tablet as needed for pain. He can repeat his dose in an hour if pain remains greater than 5 over a scale of 1-10, maximum 2 tablets in 6 hours. Morphine orders were changed. Morphine will only be provided for pain uncontrolled by [place]. We will not use the morphine until the [place] regimen is maxed out and he has taken at least 2 of the 5 mg tablets in the past 6 hours. I do feel he is appropriate for discharge to rehab as long as he is tolerating [place] 5/325 one or two every 6 hours with adequate pain control and no significant side effects. Job ID: [id number] [facility]
[2018-09-01] MEDS: Atorvastatin Calcium 40 MG TAB PO SCH (21:28)
[2018-09-01] MEDS: Donepezil HCl 10 MG TAB PO SCH (21:31)
[2018-09-02] MEDS: HYDROcodone/Acetaminophen 5/325 mg Tablet PO PRN ×7 (03:03→22:04)
[2018-09-02] MEDS: Aspirin 325 MG TAB PO SCH (09:16)
[2018-09-02] MEDS: Triamterene/Hydrochlorothiazide 37.5 mg/25 mg Tablet PO SCH (09:17)
[2018-09-02] MEDS: Clopidogrel Bisulfate 75 MG TAB PO SCH (09:17)
[2018-09-02] MEDS: Gabapentin 300 MG CAP PO SCH ×3 (09:18→20:41)
[2018-09-02] MEDS: Cyclobenzaprine 10 MG TAB PO SCH ×3 (09:18→20:41)
[2018-09-02] MEDS: Lisinopril 10 MG TAB PO SCH (09:19)
[2018-09-02] MEDS: Loratadine 10 MG TAB PO SCH (09:19)
[2018-09-02] MEDS: Polyethylene Glycol 3350 17 GM Packet PO SCH (09:20)
--- NOTE | 2018-09-02 14:06 | PDOC.PN ---
- Subjective Encounter Start Date: 09/02/18 Encounter Start Time: 14:04 Subjective: complaints that he has 9/10 pain -: "if you discharge me today,i will kill myself" -: receiving pain meds as scheduled and additional for breakthru per Pain Med - Objective MAR Reviewed: Yes Vital Signs & Weight: Vital Signs (12 hours) Temp Pulse Resp BP BP Pulse Ox 09/02/18 09:19 151/70 H 09/02/18 08:00 98.2 F 74 18 140/63 96 09/02/18 04:00 95 Weight Weight 287 lb 4.8 oz I&O: 09/01/18 09/02/18 09/03/18 06:59 06:59 06:59 Intake Total 1270 1500 Output Total 1650 1100 Balance -380 400 Result Diagrams: 08/29/18 05:06 08/31/18 05:37 Additional Labs: Accuchecks 09/02/18 09/02/18 09/01/18 11:11 05:42 20:17 POC Glucose 98 89 101 09/01/18 17:21 POC Glucose 88 Phys Exam - Physical Examination Constitutional: NAD he got of of bed from lying down to sitting & standing w/o help/discomfort HEENT: PERRLA, moist MMs, sclera anicteric, TM's clear, oral pharynx no lesions , 2+ tonsils Neck: no nodes, no JVD, supple, full ROM Respiratory: no wheezing, no rales, no rhonchi, clear to auscultation bilateral Cardiovascular: RRR, no significant murmur Gastrointestinal: soft, non-tender, no distention, positive bowel sounds Musculoskeletal: no edema, pulses present Neurological: non-focal, normal sensation, moves all 4 limbs Dx/Plan (1) Chest pain Code(s): R07.9 - CHEST PAIN, UNSPECIFIED Status: Resolved Comment: Stable angina .started on Imdur.cont ASA,PlavixACE-,Statin. Ostial 80% lesion on Cath (2) Severe back pain Code(s): M54.9 - DORSALGIA, UNSPECIFIED Status: Acute Comment: working with PT.On neurontin,flexeril,lidocaine patch (3) Diabetes mellitus Code(s): E11.9 - TYPE 2 DIABETES MELLITUS WITHOUT COMPLICATIONS Status: Chronic Qualifiers: Diabetes mellitus type: type 2 (4) HTN (hypertension) Code(s): I10 - ESSENTIAL (PRIMARY) HYPERTENSION Status: Chronic (5) Obesity Code(s): E66.9 - OBESITY, UNSPECIFIED Status: Chronic Qualifiers: Body mass index: BMI 34.0-34.9 - Plan DVT proph w/SCDs Pt exhibiting manipulative behavior likely for secondary gain -: can not quantify th epain level as he is seen doing regular activities w/o -: discomfort yet asking for pain meds round the clock -: will cancel discharge now even though he is medicaly stable to go -: Hd stable.Avoidable day #3 * . Review of Systems - Review of Systems ENT: negative: Ear Pain, Ear Discharge, Nose Pain, Nose Discharge, Nose Congestion, Mouth Pain, Mouth Swelling, Throat Pain, Throat Swelling, Other Respiratory: negative: Cough, Dry, Shortness of Breath, Hemoptysis, SOB with Excertion, Pleuritic Pain, Sputum, Wheezing Cardiovascular: negative: chest pain, palpitations, orthopnea, paroxysmal nocturnal dyspnea, edema, light headedness, other Gastrointestinal: negative: Nausea, Vomiting, Abdominal Pain, Diarrhea, Constipation, Melena, Hematochezia, Other Genitourinary: negative: Dysuria, Frequency, Incontinence, Hematuria, Retention , Other Musculoskeletal: Back Pain, Leg Pain - Medications/Allergies Allergies/Adverse Reactions: Allergies Allergy/AdvReac Type Severity Reaction Status Date / Time No Known Allergies Allergy Verified 08/25/18 11:40 Medications: Current Medications Hydrocodone Bitart/Acetaminophen ([place] 5/325) 1 tab PO Q6H PRN PRN Reason: Pain Last Admin: 09/02/18 13:14 Dose: 1 tab Aspirin (Aspirin) 325 mg PO DAILY [facility] Last Admin: 09/02/18 09:16 Dose: 325 mg Atorvastatin Calcium (Lipitor) 40 mg PO HS [facility] Last Admin: 09/01/18 21:28 Dose: 40 mg Clopidogrel Bisulfate (Plavix) 75 mg PO DAILY [facility] Last Admin: 09/02/18 09:17 Dose: 75 mg Cyanocobalamin (Vitamin B-12) 1,000 mcg PO MoWeFr@0900 [facility] Last Admin: 09/01/18 09:04 Dose: 1,000 mcg Cyclobenzaprine HCl (Flexeril) 10 mg PO TID [facility] Last Admin: 09/02/18 09:18 Dose: 10 mg Dextrose/Water (Dextrose 50%) 25 gm SLOW IVP PRN PRN PRN Reason: Hypoglycemia Diphenhydramine HCl (Benadryl) 25 mg IVP Q6H PRN PRN Reason: Itching & Insomnia Last Admin: 08/31/18 23:21 Dose: 25 mg Donepezil HCl (Aricept) 5 mg PO HS [facility] Last Admin: 09/01/18 21:31 Dose: 5 mg Gabapentin (Neurontin) 300 mg PO TID [facility] Last Admin: 09/02/18 09:18 Dose: 300 mg Glipizide (Glucotrol Xl) 5 mg PO BID-AC [facility] Last Admin: 09/02/18 08:07 Dose: 5 mg Glucagon (Glucagon) 1 mg IM PRN PRN PRN Reason: Hypoglycemia Dextrose/Water (D5w) 1,000 mls @ 0 mls/hr IV .Q0M PRN PRN Reason: Hypoglycemia Sodium Chloride (Normal Saline 0.9%) 1,000 mls @ 0 mls/hr IV .Q0M [facility] Last Admin: 08/30/18 22:11 Dose: 1,000 mls Insulin Human Lispro (Humalog) 0 units SC .MILD SLIDING SCALE PRN PRN Reason: Mild Correctional Scale Insulin Human Lispro (Humalog) 0 units SC .BEDTIME SLIDING SC PRN PRN Reason: Bedtime Correctional Scale Isosorbide Mononitrate (Imdur Er) 30 mg PO DAILY [facility] Last Admin: 09/02/18 09:19 Dose: 30 mg Lidocaine (Lidoderm 5% Patch) 1 patch TD DAILYPRN PRN PRN Reason: Pain Last Admin: 09/01/18 08:20 Dose: 1 patch Lisinopril (Zestril) 10 mg PO DAILY [facility] Last Admin: 09/02/18 09:19 Dose: 10 mg Loratadine (Claritin) 10 mg PO DAILY [facility] Last Admin: 09/02/18 09:19 Dose: 10 mg Miscellaneous Medication (Lidocaine Patch Removal) 1 each TOP DAILYPRN PRN PRN Reason: Remove PATCH after 12 HRS Miscellaneous Medication (Movantik) 25 mg PO DAILY [facility] Last Admin: 09/02/18 10:35 Dose: 25 mg Morphine Sulfate (Morphine) 2 mg SLOW IVP Q4H PRN PRN Reason: Moderate to Severe Pain (7-10) Last Admin: 09/01/18 08:09 Dose: 2 mg Nitroglycerin (Nitrostat) 0.4 mg SL Q5MIN PRN PRN Reason: Chest Pain Last Admin: 08/29/18 20:44 Dose: 0.4 mg Pantoprazole Sodium (Protonix) 40 mg PO DAILY [facility] Last Admin: 09/02/18 09:18 Dose: 40 mg Polyethylene Glycol (Miralax) 17 gm PO DAILY [facility] Last Admin: 09/02/18 09:20 Dose: 17 gm Sodium Chloride (Flush - Normal Saline) 10 ml IVF Q12HR [facility] Last Admin: 09/02/18 09:20 Dose: 10 ml Sodium Chloride (Flush - Normal Saline) 10 ml IVF PRN PRN PRN Reason: Saline Flush Last Admin: 08/30/18 02:10 Dose: 10 ml Triamterene/HCTZ (Maxzide-25) 2 tab PO DAILY [facility] Last Admin: 09/02/18 09:17 Dose: 2 tab
[2018-09-02] MEDS: Atorvastatin Calcium 40 MG TAB PO SCH (20:41)
[2018-09-02] MEDS: Donepezil HCl 10 MG TAB PO SCH (20:41)
[2018-09-03] MEDS: HYDROcodone/Acetaminophen 5/325 mg Tablet PO PRN ×5 (01:06→13:57)
[2018-09-03 07:57] VITALS: BP 133/62; TEMP 98.4
[2018-09-03] MEDS: Polyethylene Glycol 3350 17 GM Packet PO SCH (08:41)
[2018-09-03] MEDS: Cyclobenzaprine 10 MG TAB PO SCH (08:42)
[2018-09-03] MEDS: Aspirin 325 MG TAB PO SCH (08:42)
[2018-09-03] MEDS: Triamterene/Hydrochlorothiazide 37.5 mg/25 mg Tablet PO SCH (08:42)
[2018-09-03] MEDS: Clopidogrel Bisulfate 75 MG TAB PO SCH (08:42)
[2018-09-03] MEDS: Lisinopril 10 MG TAB PO SCH (08:42)
[2018-09-03] MEDS: Gabapentin 300 MG CAP PO SCH (08:42)
[2018-09-03] MEDS: Loratadine 10 MG TAB PO SCH (08:42)
--- NOTE | 2018-09-03 19:23 | PDOC.PN ---
- Subjective Encounter Start Date: 09/03/18 Encounter Start Time: 08:50 Subjective: patient seen and examined feeling better -: pain is under controll - Objective Vital Signs & Weight: Vital Signs (12 hours) Temp Pulse Resp BP BP Pulse Ox 09/03/18 08:42 133/62 09/03/18 08:00 96 09/03/18 07:55 98.4 F 71 16 133/62 99 Weight Weight 287 lb 4.8 oz I&O: 09/02/18 09/03/18 09/04/18 06:59 06:59 06:59 Intake Total 1500 2530 Output Total 1100 3 Balance 400 2527 Result Diagrams: 08/29/18 05:06 08/31/18 05:37 Additional Labs: Accuchecks 09/03/18 09/02/18 05:56 19:42 POC Glucose 89 124 H Phys Exam - Physical Examination Constitutional: NAD HEENT: PERRLA, moist MMs, sclera anicteric, TM's clear Neck: no nodes, no JVD, full ROM Respiratory: no wheezing, no rales, no rhonchi, clear to auscultation bilateral Cardiovascular: RRR, no significant murmur, no rub Dx/Plan (1) Severe back pain Code(s): M54.9 - DORSALGIA, UNSPECIFIED Status: Acute Comment: working with PT.On neurontin,flexeril,lidocaine patch (2) Diabetes mellitus Code(s): E11.9 - TYPE 2 DIABETES MELLITUS WITHOUT COMPLICATIONS Status: Chronic Qualifiers: Diabetes mellitus type: type 2 (3) HTN (hypertension) Code(s): I10 - ESSENTIAL (PRIMARY) HYPERTENSION Status: Chronic (4) Obesity Code(s): E66.9 - OBESITY, UNSPECIFIED Status: Chronic Qualifiers: Body mass index: BMI 34.0-34.9 - Plan pain controll -: D/c to [facility] today * .
--- NOTE | 2018-09-04 03:34 | DIS ---
DATE OF ADMISSION: 08/27/2018 DATE OF DISCHARGE: 09/03/2018 Please note that the patient was seen and examined by Dr. Andrea Webber on the day of discharge on 09/03/2018. Please see his progress note from today's date for today's evaluation. This is just a summary of his stay in the hospital as I have taken care of this patient before Dr. Mendez. DISCHARGE DISPOSITION: [facility] for rehab. DISCHARGE DIAGNOSES: 1. Acute on chronic intractable back pain and leg pain. 2. Chest pain, suspected, stable angina. 3. Diabetes mellitus type 2. 4. Hypertension. 5. Obesity. DISCHARGE DIAGNOSES: 1. [place] as per pain medication, Dr. Mejia. 2. Isosorbide mononitrate 30 mg daily. 3. Lidocaine patch 5% daily. 4. Aspirin 325 mg daily. 5. Sublingual nitroglycerin. 6. Triamterene hydrochlorothiazide 37.5/25 two capsules daily. 7. Omeprazole 40 mg daily. 8. Fexofenadine 180 mg daily. 9. Zocor 40 mg daily. 10. Gabapentin 300 mg p.o. b.i.d. 11. Plavix 75 mg daily. 12. Donepezil 5 mg daily. 13. Glipizide 5 mg p.o. b.i.d. IN-HOUSE CONSULTATIONS: 1. Pain Medication, Dr. Mejia. 2. Cardiology, Dr. Cortez and Dr. Mercer. PROCEDURES DONE IN HOSPITAL: 1. Multiple imaging studies including x-ray of the sacrum, coccyx, as well as a CT scan of the thoracic lumbar spine and MRI of the lumbar spine. All of these are negative for any acute changes. He does have evidence of degenerative changes in the lumbar spine. 2. Transthoracic echocardiogram which shows EF of 50% to 55%. Grade 1/3 diastolic dysfunction. 3. Nuclear medicine stress test, which shows small focus of reversibility involving the anterolateral septum and apex with EF of 63%. 4. 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 5. Abdominal ultrasound which shows cholelithiasis without evidence of cholecystitis. 6. HIDA scan which shows chronic gallbladder dyskinesia without any evidence of cholecystitis. 7. Pelvic x-ray which is negative for any fracture. 8. MRI of the brain which is negative for any evidence of acute infarction. HISTORY OF PRESENTING ILLNESS: Mr. Poon is a 73-year-old male with past medical history of type 2 diabetes, hypertension, dyslipidemia, neuropathy, chronic back pain, who presented to the emergency room with intractable back pain and atypical chest pain. He was admitted for further evaluation. CT scan of the T and L-spine upon presentation showed degenerative changes, otherwise no acute changes. Cardiology was consulted. His initial troponin was negative. Echo was ordered. Please see admission history and physical for further details. HOSPITAL COURSE: The patient underwent multiple other imaging studies as outlined above to ascertain the etiology of his back pain and all of them were unremarkable. Pain Medication was eventually consulted when his pain was not controlled by pain medications as prescribed and the patient was overusing the morphine. Dr. Mejia and his group followed the patient along and eventually, he was weaned off morphine and was stable on [place] p.r.n. Rehab was arranged for him. With regard to his chest pain, he underwent a nuclear medicine stress test and cardiology followup. Because of some abnormality on stress test, he underwent cardiac catheterization which showed 80% ostial lesion. His angina-like symptoms were controlled with sublingual nitroglycerin. Dr. Cortez started him on triamterene hydrochlorothiazide as well. He also had a gallbladder scan done, which was unremarkable except for cholelithiasis. The patient's hospitalization was prolonged because of multiple new complaints that kept on coming every day. Fortunately, the rest of his workup was unremarkable and eventually his pain was under adequate control to be able to be discharged to rehab today. Please note that the patient was seen and examined by Dr. Mendez today. Before the discharge, please see his hospitalist progress note for further details. I have not seen the patient today, but I was asked to do his discharge summary as I have taken care of him in the hospital the most. Job ID: [id number]
== END 2018-09-03 14:41 | DRG 287 ==
LOC: ERS 04:07 → ERHOLD 07:43 → 2NO 11:22 → OBSVTOIN 08-27 13:05 → ONC 08-30 17:29
PROVIDERS: ADMIT Internal Medicine; ATTEND Internal Medicine
PROC: 4A023N7 Measurement of Cardiac Sampling and Pressure, Left Heart, Percutaneous Approach (ICD-10-PCS; principal; 2018-08-28)
PROC: B2111ZZ Fluoroscopy of Multiple Coronary Arteries using Low Osmolar Contrast (ICD-10-PCS; 2018-08-28)
DX: I25.119 Atherosclerotic heart disease of native coronary artery with unspecified angina pectoris (principal); K80.10 Calculus of gallbladder with chronic cholecystitis without obstruction; M48.062 Spinal stenosis, lumbar region with neurogenic claudication; I10 Essential (primary) hypertension; E11.40 Type 2 diabetes mellitus with diabetic neuropathy, unspecified; R00.2 Palpitations; R00.1 Bradycardia, unspecified; M19.90 Unspecified osteoarthritis, unspecified site; K59.03 Drug induced constipation; T40.605A Adverse effect of unspecified narcotics, initial encounter; G89.29 Other chronic pain; S39.92XA Unspecified injury of lower back, initial encounter; E78.00 Pure hypercholesterolemia, unspecified; K44.9 Diaphragmatic hernia without obstruction or gangrene; K21.9 Gastro-esophageal reflux disease without esophagitis; Z86.73 Personal history of transient ischemic attack (TIA), and cerebral infarction without residual deficits; E66.9 Obesity, unspecified; Z96.653 Presence of artificial knee joint, bilateral; Z68.34 Body mass index [BMI] 34.0-34.9, adult; Z79.02 Long term (current) use of antithrombotics/antiplatelets; Z79.4 Long term (current) use of insulin; Z79.82 Long term (current) use of aspirin; W01.0XXA Fall on same level from slipping, tripping and stumbling without subsequent striking against object, initial encounter
CPT/HCPCS: 36415; 36416; 70553; 71045; 72128; 72131; 72148; 72170; 72220; 76705; 78227; 78452; 80048; 80053; 80061; 82550; 83690; 83880; 84484; 85025; 93005; 93010; 93017; 93306; 93458; 94760; 96374; 96375; 96376; 99152; 99153; A9500; A9537; A9577; C1769; J0153; J1200; J1644; J1885; J2250; J2270; J3010; Q9967

== ENCOUNTER 2021-02-09 13:36 | Outpatient (CLI) | payer MEDICARE | END 2021-02-09 13:37 | disposition home or self-care (01) | LOC: SCSRAD 13:36 | PROVIDERS: ATTEND Family Medicine | DX: J40 Bronchitis, not specified as acute or chronic (principal) | CPT/HCPCS: 71046 ==

== ENCOUNTER 2023-11-23 08:42 | Inpatient (IN) | payer MEDICARE ==
[2023-11-23 09:59] LABS: ALT (SGPT) 18 U/L (8-55); AST (SGOT) 46 U/L (5-34); Albumin 3.6 g/dL (3.4-4.8); Alkaline Phosphatase 78 U/L (40-110); Anion Gap 16 mmol/L (10-20); BUN (Urea Nitrogen) 16 mg/dL (8.4-25.7); Bilirubin, Total 1.9 mg/dL (0.2-1.2); Calc. Creatinine Clearance 0 mL/min (70-130); Calcium 9.6 mg/dL (7.8-10.44); Carbon Dioxide 29 mmol/L (23-31); Chloride 101 mmol/L (98-107); Estimated GFR 88; Globulin 3.3 g/dL (2.4-3.5); Glucose 111 mg/dL (83-110); Protein, Total 6.9 g/dL (5.8-8.1); Sodium 143 mmol/L (136-145)
[2023-11-23 10:09] LABS: #Basophils 0.04 10x3/uL (0.0-0.2); %Basophils 0.4 % (0.0-1.0); %Eosinophils 0.7 % (0.0-10.0); %Lymphocytes 15.6 % (21.0-51.0); %Monocytes 14.8 % (0.0-10.0); %Neutrophils 68.2 % (42.0-75.0); Hematocrit 41.5 % (42.0-52.0); Hemoglobin 14.5 g/dL (14.0-18.0); Mean Corpuscular HGB CONC 34.9 g/dL (32.0-36.0); Mean Corpuscular Hemoglobin 31.4 pg (27.0-31.0); Mean Corpuscular Volume 89.8 fL (78.0-98.0); Mean Platelet Volume 11.3 fL (7.4-10.4); Platelet Count 125 10x3/uL (130-400); RBC Distribution Width 12.8 % (11.5-14.5); Red Blood Cell (RBC) Count 4.62 mill/uL (4.70-6.10)
[2023-11-23] MEDS ORDERED: CEFAZOLIN 2 GM VIAL ONE (10:57)
[2023-11-23] MEDS ORDERED: Magnesium 2 GM/50 ML BAG (IN WATER) ONE (10:57)
[2023-11-23] MEDS ORDERED: Sodium Chloride 0.9% 100 ML ONE (10:58)
[2023-11-23] MEDS ORDERED: NS 0.9% w/ 20 MEQ KCL 1,000 ML ONE (10:58)
[2023-11-23] MEDS ORDERED: Midazolam HCl 2 mg/2 ml Vial ONE (12:17)
[2023-11-23] MEDS ORDERED: fentaNYL 50 mcg/mL 1 mL Vial ONE ×2 (12:17→14:51)
[2023-11-23] MEDS ORDERED: Bupivacaine PF 0.5% 30 ML VIAL ONE (12:17)
[2023-11-23] MEDS ORDERED: Lidocaine 1% PF 5 ML VIAL ONE (12:21)
[2023-11-23] MEDS ORDERED: fentaNYL PF 100 MCG/2 ML SYRINGE ONE ×2 (12:21→14:35)
[2023-11-23] MEDS ORDERED: PROPOFOL 20 ML ONE (12:21)
[2023-11-23] MEDS ORDERED: fentaNYL 50 mcg/mL 1 mL Vial SLOW IVP PRN (12:58)
[2023-11-23] MEDS ORDERED: Ropivacaine 0.2% 550 ML 550 ML NERVE BLCK SCH (13:00)
[2023-11-23] MEDS ORDERED: Ondansetron PF 4 MG/2 ML Vial IVP PRN ×2 (13:00→14:41)
[2023-11-23] MEDS ORDERED: Promethazine HCl 25 MG/ML VIAL IM PRN ×2 (13:00→14:41)
[2023-11-23] MEDS ORDERED: Glycopyrrolate 0.2 MG/ML 5 ML SYRINGE ONE (13:15)
[2023-11-23] MEDS ORDERED: Bupivacaine HCl 0.5%/Epinephrine 1:200,000/PF 30 ml Vial ONE (13:15)
[2023-11-23] MEDS ORDERED: Rocuronium Bromide 10 MG/ML (10ML VIAL) ONE (13:15)
[2023-11-23] MEDS ORDERED: SUGAMMADEX SODIUM 200 MG/2 ML VIAL ONE (13:49)
[2023-11-23] MEDS ORDERED: Ondansetron PF 4 MG/2 ML Vial ONE (13:54)
[2023-11-23] MEDS ORDERED: Zolpidem Tartrate 5 MG TAB PO PRN (14:41)
[2023-11-23] MEDS ORDERED: HYDROmorphone 0.5 MG/0.5 ML SYRINGE ONE ×2 (15:02→15:36)
[2023-11-23 17:40] VITALS: BMI 29.1
[2023-11-23] MEDS: Ketorolac Tromethamine 30 MG (1 mL) VIAL IVP SCH (18:10)
[2023-11-23] MEDS: CEFAZOLIN 2 GM in Sodium Chloride 0.9% 100 ML IVPB SCH (18:11)
[2023-11-23] MEDS: Sodium Chloride 0.9% 1,000 ML IV SCH (18:34)
[2023-11-23] MEDS: Aspirin 81 mg Enteric Coated Tablet PO SCH (21:44)
[2023-11-24] MEDS: Vancomycin (BATCH) 1.5 GM in Premix 1 BAG IVPB SCH (00:01)
[2023-11-24 05:36] LABS: Hemoglobin 11.9 g/dL (14.0-18.0); Mean Platelet Volume 11.4 fL (7.4-10.4); Platelet Count 98 10x3/uL (130-400); RBC Distribution Width 12.9 % (11.5-14.5); Red Blood Cell (RBC) Count 3.84 mill/uL (4.70-6.10)
[2023-11-24] MEDS: HYDROcodone/Acetaminophen 10/325 mg Tablet PO PRN (07:49)
[2023-11-24] MEDS: Ferrous Gluconate 324 MG TAB PO SCH (07:49)
[2023-11-24] MEDS: Senokot S 8.6-50 MG TAB PO SCH (07:49)
[2023-11-24] MEDS ORDERED: Nitroglycerin 0.4 MG TAB (25 Tab Bottle) SL PRN (07:49)
[2023-11-24] MEDS ORDERED: Non-Formulary Item 1 EACH (Potassium Gluconate [Potassium] 600 MG Tablet) PO SCH (08:00)
[2023-11-24] MEDS ORDERED: Non-Formulary Item 1 EACH (Triamterene/Hydrochlorothiazid [Triamterene-Hctz 37.5-25 Mg Cp PO SCH (09:00)
[2023-11-24] MEDS ORDERED: OMEPRAZOLE 40 MG PO SCH (09:00)
[2023-11-24] MEDS ORDERED: Rosuvastatin 10 MG TAB PO SCH (09:00)
[2023-11-24] MEDS: Gabapentin 300 MG CAP PO SCH (09:11)
[2023-11-24] MEDS: Pantoprazole DR 40 MG TAB PO SCH (09:12)
[2023-11-24] MEDS: Clopidogrel Bisulfate 75 MG TAB PO SCH (09:14)
[2023-11-24] MEDS: Isosorbide Mononitrate 30 MG ER.TAB PO SCH (09:14)
[2023-11-24] MEDS: Rosuvastatin 10 MG TAB PO SCH (09:14)
[2023-11-24] MEDS: Multivitamin W/ Minerals 1 TAB PO SCH (09:52)
[2023-11-24] MEDS: Triamterene/Hydrochlorothiazide 37.5 mg/25 mg Tablet PO SCH (10:16)
[2023-11-24] MEDS: Donepezil HCl 10 MG TAB PO SCH (20:14)
[2023-11-24] MEDS: Melatonin 3 MG TAB PO SCH (20:15)
[2023-11-24] MEDS ORDERED: Donepezil HCl 10 MG TAB PO SCH (21:00)
[2023-11-24] MEDS ORDERED: Non-Formulary Item 1 EACH (Melatonin [Melatonin] 10 MG Tablet) PO SCH (21:00)
[2023-11-24] MEDS: Acetaminophen 325 MG TAB PO PRN (23:53)
[2023-11-25 05:27] LABS: Hematocrit 32.8 % (42.0-52.0); Hemoglobin 11.1 g/dL (14.0-18.0); Mean Corpuscular HGB CONC 33.8 g/dL (32.0-36.0); Mean Corpuscular Volume 94.5 fL (78.0-98.0); Platelet Count 111 10x3/uL (130-400); RBC Distribution Width 12.9 % (11.5-14.5); Red Blood Cell (RBC) Count 3.47 mill/uL (4.70-6.10)
[2023-11-25] MEDS ORDERED: Glucagon 1 MG/ML KIT IM PRN (09:50)
[2023-11-25] MEDS ORDERED: Dextrose 5% in Water 1,000 ML IV PRN (09:50)
[2023-11-25] MEDS ORDERED: Dextrose 50% Abboject 50 ML SYRINGE SLOW IVP PRN (09:50)
[2023-11-25] MEDS: Potassium Chloride 8 MEQ TAB PO SCH (09:55)
[2023-11-25] MEDS ORDERED: Insulin Regular, Human 100 UNIT/ML 10 ML VIAL SC PRN (09:57)
[2023-11-25] MEDS ORDERED: Loratadine 10 MG TAB PO PRN (10:24)
[2023-11-25] MEDS: Potassium Chloride 20 MEQ TAB PO SCH (12:13)
[2023-11-25] MEDS: HYDROcodone/Acetaminophen 10/325 mg Tablet PO PRN (21:43)
[2023-11-26 06:28] LABS: ALT (SGPT) 18 U/L (8-55); AST (SGOT) 55 U/L (5-34); Albumin 2.2 g/dL (3.4-4.8); Alkaline Phosphatase 110 U/L (40-110); Anion Gap 11 mmol/L (10-20); BUN (Urea Nitrogen) 15 mg/dL (8.4-25.7); Bilirubin, Total 1.2 mg/dL (0.2-1.2); Calc. Creatinine Clearance 135 mL/min (70-130); Calcium 8.5 mg/dL (7.8-10.44); Carbon Dioxide 28 mmol/L (23-31); Chloride 103 mmol/L (98-107); Estimated GFR 94; Globulin 2.9 g/dL (2.4-3.5); Glucose 88 mg/dL (83-110); Potassium 3.5 mmol/L (3.5-5.1); Protein, Total 5.1 g/dL (5.8-8.1); Sodium 138 mmol/L (136-145)
[2023-11-26] MEDS: Bisacodyl 10 MG SUPP PR PRN (12:37)
[2023-11-26] MEDS: Ipratropium/Albuterol 3 ML NEB NEB SCH (18:24)
[2023-11-26] MEDS: guaiFENesin ER 600 MG TAB PO SCH (21:24)
[2023-11-27] MEDS: CEFAZOLIN 2 GM in Sodium Chloride 0.9% 100 ML IVPB SCH (14:08)
[2023-11-28] MEDS: diphenhydrAMINE 25 MG CAP PO PRN (03:59)
[2023-11-28] MEDS: Cyanocobalamin (Vitamin B-12) 1,000 MCG TAB PO SCH (08:50)
[2023-11-28] MEDS: Benzocaine/Menthol 1 LOZ LOZ PO PRN (21:29)
[2023-11-28] MEDS: Pantoprazole DR 40 MG TAB PO SCH (21:29)
[2023-11-28] MEDS: Phenol 177 ML BOT PO PRN (21:31)
[2023-11-29 05:10] LABS: #Basophils 0.05 10x3/uL (0.0-0.2); %Basophils 0.8 % (0.0-1.0); %Lymphocytes 21.9 % (21.0-51.0); %Monocytes 12.7 % (0.0-10.0); %Neutrophils 60.1 % (42.0-75.0); Hematocrit 31.3 % (42.0-52.0); Hemoglobin 10.5 g/dL (14.0-18.0); Mean Corpuscular HGB CONC 33.5 g/dL (32.0-36.0); Mean Corpuscular Volume 92.3 fL (78.0-98.0); Mean Platelet Volume 10.9 fL (7.4-10.4); Platelet Count 190 10x3/uL (130-400); RBC Distribution Width 12.8 % (11.5-14.5); Red Blood Cell (RBC) Count 3.39 mill/uL (4.70-6.10)
[2023-11-29 05:28] LABS: Anion Gap 13 mmol/L (10-20); BUN (Urea Nitrogen) 14 mg/dL (8.4-25.7); Calc. Creatinine Clearance 141 mL/min (70-130); Calcium 8.6 mg/dL (7.8-10.44); Carbon Dioxide 26 mmol/L (23-31); Chloride 106 mmol/L (98-107); Estimated GFR 95; Glucose 93 mg/dL (83-110); Potassium 3.6 mmol/L (3.5-5.1); Sodium 141 mmol/L (136-145)
[2023-11-29] MEDS: Ascorbic Acid 500 mg Chewable Tablet PO SCH (08:39)
[2023-11-29] MEDS: Cephalexin 250 MG CAP PO SCH (14:05)
[2023-11-30] MEDS: traMADol HCl 50 MG TAB PO PRN (09:27)
[2023-11-30 14:03] VITALS: BMI 29.1
[2023-12-01] MEDS: traMADol HCl 50 MG TAB PO PRN (06:33)
[2023-12-01] MEDS ORDERED: Ipratropium/Albuterol 3 ML NEB NEB PRN (07:28)
[2023-12-02 11:35] VITALS: BP 131/60; TEMP 98.4
== END 2023-12-02 14:05 | disposition home or self-care (01) | DRG 467 ==
LOC: ERS 08:42 → SURG A 17:22
PROVIDERS: ADMIT Orthopaedic Surgery; ATTEND Orthopaedic Surgery
PROC: 0SPW0JZ Removal of Synthetic Substitute from Left Knee Joint, Tibial Surface, Open Approach (ICD-10-PCS; principal; 2023-11-23)
PROC: 0SRW0JZ Replacement of Left Knee Joint, Tibial Surface with Synthetic Substitute, Open Approach (ICD-10-PCS; 2023-11-23)
PROC: 0SWD04Z Revision of Internal Fixation Device in Left Knee Joint, Open Approach (ICD-10-PCS; 2023-11-23)
DX: T84.54XA Infection and inflammatory reaction due to internal left knee prosthesis, initial encounter (principal); M00.9 Pyogenic arthritis, unspecified; I10 Essential (primary) hypertension; K21.9 Gastro-esophageal reflux disease without esophagitis; F32.A Depression, unspecified; H26.9 Unspecified cataract; K80.20 Calculus of gallbladder without cholecystitis without obstruction; M25.561 Pain in right knee; K44.9 Diaphragmatic hernia without obstruction or gangrene; K12.1 Other forms of stomatitis; M47.26 Other spondylosis with radiculopathy, lumbar region; Z96.652 Presence of left artificial knee joint; R06.02 Shortness of breath; S32.030G Wedge compression fracture of third lumbar vertebra, subsequent encounter for fracture with delayed healing; E87.6 Hypokalemia; E11.9 Type 2 diabetes mellitus without complications; E78.5 Hyperlipidemia, unspecified; Z95.0 Presence of cardiac pacemaker; J30.2 Other seasonal allergic rhinitis; F03.90 Unspecified dementia, unspecified severity, without behavioral disturbance, psychotic disturbance, mood disturbance, and anxiety
CPT/HCPCS: 36415; 36416; 70450; 80048; 80053; 83605; 85025; 85027; 87040; 87070; 87205; 93005; 94640; 96361; 96374; 96375; A4306; C1776; J0665; J1170; J1885; J2250; J2405; J2704; J2795; J3010; J3370; J3475; J3480; J3490; J7620